=== PATIENT | female | born 2000 | race Caucasian/White ===

== ENCOUNTER 2020-09-18 13:02 | Emergency (ER) | payer OTHER ==
[~2020-09-18] VITALS: Ht 152.4 cm; Wt 67.6 kg
[~2020-09-18 13:02] MED LIST: BACTRIM DS TAB1 EACH PO; CLONIDINE HCL0.1 MG PO; CONCERTA54 MG PO; IBUPROFEN600 MG PO; LIDOCAINE30 G TOP; SERTRALINE HCL50 MG PO
== END 2020-09-18 16:19 | disposition home or self-care (01) ==
LOC: ED 13:02
DX: R55 Syncope and collapse (principal); Z20.822 Contact with and (suspected) exposure to COVID-19; Z88.0 Allergy status to penicillin
CPT/HCPCS: 80053; 81001; 84703; 85025; 99284; C9803; U0003

== ENCOUNTER 2020-10-06 08:20 | Emergency (ER) | payer OTHER ==
[~2020-10-06] VITALS: Ht 152.4 cm; Wt 68.6 kg
[2020-10-06] MEDS ORDERED: VITAMIN D31250 MC1 PO (08:37)
--- OUTSIDE RECORDS SUMMARY | 2020-10-06 08:56 | XMS ---
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 - 2 Visits in 30 Days CARE PROVIDERS AMAURI PRICE Clinic/Center: Primary Care 01/16/2019-[facility] PHONE: [phone] Anjana NORMAN Nurse Practitioner: 12/21/2019-Current PHONE: [phone] CHAD CUEVAS Nurse Practitioner: 06/22/2019-Current PHONE: [phone] HUONG LEUNG Nuclear Spectroscopist/Flexographic Press Operator Current [facility] TEAM PHONE: Unknown Care Guidelines exist for the following facilities: [facility] ( 07/08/2020 ) Danisha VISIT COUNT (12 MO.) 1 Michi Olivo 2 PRINCESS Lyn TOTAL 3 NOTE: Visits indicate total known visits. ED/UCC VISIT TRACKING (12 MO.) 10/06/2020 08:20 PRINCESS Rey [place] TYPE: Emergency COMPLAINT: - ABD PAIN 09/18/2020 13:03 PRINCESS Rey [place] TYPE: Emergency COMPLAINT: - WEAKNESS, BODY PAIN, BALANCE ISSUE DIAGNOSES: - Allergy status to penicillin - Syncope and collapse - Dizziness and giddiness 11/12/2019 22:58 Michi MALDONADO OR TYPE: Emergency DIAGNOSES: - Unspecified abdominal pain INPATIENT VISIT TRACKING (12 MO.) No inpatient visits to display in this time frame [email or web address]
[2020-10-06] MEDS ORDERED: ONDANSETRON ODT4 MG PO (10:21)
== END 2020-10-06 11:03 | disposition home or self-care (01) ==
LOC: ED 08:20
DX: R11.2 Nausea with vomiting, unspecified (principal); R19.7 Diarrhea, unspecified; R10.9 Unspecified abdominal pain; Z88.0 Allergy status to penicillin
CPT/HCPCS: 80053; 85025; 96374; 99284-25; J2405; J7030

== ENCOUNTER 2020-10-21 18:05 | Emergency (ER) | payer OTHER ==
[~2020-10-21] VITALS: Ht 152.4 cm; Wt 70.3 kg
[~2020-10-21 18:05] MED LIST changes: +ONDANSETRON ODT4 MG PO; +VITAMIN D31250 MC1 PO
--- OUTSIDE RECORDS SUMMARY | 2020-10-21 18:08 | XMS ---
PreManage Notification: HOANG SAUCEDO Security Gum Cook Events No recent Security Events currently on file CRITERIA MET - [facility] - 2 Visits in 30 Days CARE PROVIDERS AMAURI PRICE Clinic/Center: Primary Care 01/16/2019-[facility] PHONE: [phone] Anjana NORMAN Nurse Practitioner: 12/21/2019-Current PHONE: [phone] CHAD CUEVAS Nurse Practitioner: 06/22/2019-Current PHONE: [phone] HUONG LEUNG Malt Loader/Clean Out Driller Current [facility] TEAM PHONE: Unknown Care Guidelines exist for the following facilities: [facility] ( 07/08/2020 ) Danisha VISIT COUNT (12 MO.) 1 Michi Olivo 3 PRINCESS Lyn TOTAL 4 NOTE: Visits indicate total known visits. ED/UCC VISIT TRACKING (12 MO.) 10/21/2020 18:05 PRINCESS GonzalezAnup Sparrow [place] TYPE: Emergency COMPLAINT: - BACK PAIN/ NON INJ 10/06/2020 08:20 PRINCESS [place] HAnup Sparrow [place] TYPE: Emergency COMPLAINT: - NV DIAGNOSES: - Unspecified abdominal pain - Nausea with vomiting, unspecified - Diarrhea, unspecified - Allergy status to penicillin 09/18/2020 13:03 PRINCESS [place] HAnup Sparrow [place] TYPE: Emergency COMPLAINT: - WEAKNESS, BODY PAIN, BALANCE ISSUE DIAGNOSES: - Allergy status to penicillin - Syncope and collapse - Dizziness and giddiness 11/12/2019 22:58 Michi MALDONADO [place] TYPE: Emergency DIAGNOSES: - Unspecified abdominal pain INPATIENT VISIT TRACKING (12 MO.) No inpatient visits to display in this time frame [email or web address]
[2020-10-21] MEDS ORDERED: CYCLOBENZAPRINE10 MG PO (19:29)
== END 2020-10-21 19:54 | disposition home or self-care (01) ==
LOC: ED 18:05
DX: M54.5 Low back pain (principal); G89.29 Other chronic pain; Z88.0 Allergy status to penicillin
CPT/HCPCS: 99283

== ENCOUNTER 2021-04-10 16:38 | Emergency (ER) | payer OTHER ==
[~2021-04-10] VITALS: Ht 152.4 cm; Wt 70.3 kg
[~2021-04-10 16:38] MED LIST changes: +CYCLOBENZAPRINE10 MG PO
[2021-04-10] MEDS ORDERED: ZITHROMAX250 MG PO (19:00)
== END 2021-04-10 19:18 | disposition home or self-care (01) ==
LOC: ED 16:38
DX: J02.9 Acute pharyngitis, unspecified (principal); Z88.0 Allergy status to penicillin; Z20.822 Contact with and (suspected) exposure to COVID-19
CPT/HCPCS: 87077; 87081; 99283; C9803; U0003

== ENCOUNTER 2021-09-18 14:47 | Emergency (ER) | payer OTHER ==
[~2021-09-18] VITALS: Ht 152.4 cm; Wt 70.3 kg
[~2021-09-18 14:47] MED LIST changes: +ZITHROMAX250 MG PO
== END 2021-09-18 17:54 | disposition home or self-care (01) ==
LOC: ED 14:47
DX: O99.891 Other specified diseases and conditions complicating pregnancy (principal); R10.2 Pelvic and perineal pain; Z88.0 Allergy status to penicillin
CPT/HCPCS: 36415; 76801; 76817; 80053; 81001; 83690; 84702; 85025; 87491; 99284-25

== ENCOUNTER 2021-09-22 23:40 | Emergency (ER) | payer OTHER ==
[~2021-09-22] VITALS: Ht 152.4 cm; Wt 79.0 kg
--- OUTSIDE RECORDS SUMMARY | 2021-09-22 23:44 | XMS ---
PreManage Notification: HOANG SAUCEDO Security Production Estimator Events No recent Security Events currently on file CRITERIA MET - [facility] - 2 Visits in 30 Days CARE PROVIDERS MAHANOY PLANEAMAURI [facility]/Center: Primary Care 01/16/2019-[facility] PHONE: [phone] HUONG LEUNG Invoice Classification Clerk/Machine Riveter [facility] TEAM PHONE: Unknown Care Guidelines exist for the following facilities: [facility] ( 07/08/2020 ) Care History Medical/Surgical 10/23/2020 [facility] - Patient is currently established with [facility]. If patient is seen in the ED during business hours. Please contact CHWs at [facility]. Care Recommendation: If this patient has had 5 or more Emergency Department visits in the last 12 months.\T\nbsp; Patient will require education on the scope and purpose of the ED as an acute care provider not a Primary Care Provider and should not be utilized for chronic conditions.\T\nbsp; These are guidelines and the provider should exercise clinical judgment when providing care. E.D. VISIT COUNT (12 MO.) 5 PRINCESS Lyn TOTAL 5 NOTE: Visits indicate total known visits. ED/UCC VISIT TRACKING (12 MO.) 09/22/2021 23:41 PRINCESS Rey [place] TYPE: Emergency COMPLAINT: - BACK PAIN NON INJ 09/18/2021 14:47 PRINCESS Rey [place] TYPE: Emergency COMPLAINT: - ABDOMINAL PAIN DIAGNOSES: - Other specified diseases and conditions complicating - Pelvic and perineal pain - Allergy status to penicillin 04/10/2021 16:39 PRINCESS Rey [place] TYPE: Emergency COMPLAINT: - SORE THROAT DIAGNOSES: - Acute pharyngitis, unspecified - Allergy status to penicillin - Contact with and (suspected) exposure to COVID-19 10/21/2020 18:05 PRINCESS Rey [place] TYPE: Emergency COMPLAINT: - BACK PAIN/ NON INJ DIAGNOSES: - Other chronic pain - Allergy status to penicillin - Low back pain 10/06/2020 08:20 PRINCESS Rey [place] TYPE: Emergency COMPLAINT: - NV DIAGNOSES: - Unspecified abdominal pain - Nausea with vomiting, unspecified - Diarrhea, unspecified - Allergy status to penicillin INPATIENT VISIT TRACKING (12 MO.) No inpatient visits to display in this time frame [id number]
[2021-09-23] MEDS ORDERED: CYCLOBENZAPRINE10 MG PO (01:06)
[2021-09-23] MEDS ORDERED: LIDODERM1 EACH TOP (01:06)
== END 2021-09-23 01:22 | disposition home or self-care (01) ==
LOC: ED 23:40
DX: S29.012A Strain of muscle and tendon of back wall of thorax, initial encounter (principal); Z88.0 Allergy status to penicillin; X58.XXXA Exposure to other specified factors, initial encounter
CPT/HCPCS: 99283; A9270

== ENCOUNTER 2021-10-13 15:35 | Emergency (ER) | payer BC, OTHER ==
[~2021-10-13] VITALS: Ht 152.4 cm; Wt 78.9 kg
[~2021-10-13 15:35] MED LIST changes: +LIDODERM1 EACH TOP
--- OUTSIDE RECORDS SUMMARY | 2021-10-13 15:42 | XMS ---
PreManage Notification: HOANG SAUCEDO Security Patient Accounting Representative Events No recent Security Events currently on file CRITERIA MET - [facility] - 2 Visits in 30 Days - [facility] - Has Care Guidelines CARE PROVIDERS AMAURI PRICE Clinic/Center: Primary Care [facility]/16/[facility] PHONE: [phone] HUONG LEUNG Computer Aided Design Designer/Dip Brazier Current [facility] TEAM PHONE: Unknown LEXIE RIOS Nurse Practitioner: 09/25/2021-Current PHONE: [phone] Care Guidelines exist for the following facilities: [facility] [place] ( 07/08/2020 ) Care History Medical/Surgical 09/24/2021 [facility] - Patient is currently established with [facility]. If patient is seen in the ED during business hours. Please contact CHWs at [facility]. Care Recommendation: If this patient [...] care. E.D. VISIT COUNT (12 MO.) 5 [facility] TOTAL 5 NOTE: Visits indicate total known visits. ED/UCC VISIT TRACKING (12 MO.) 10/13/2021 15:35 PRINCESS Rey [place] TYPE: Emergency COMPLAINT: - DIFFICULTY BREATHING/ 7 WEEKS PREG 09/22/2021 23:41 PRINCESS Rey [place] TYPE: Emergency COMPLAINT: - BACK PAIN NON INJ DIAGNOSES: - Strain of muscle and tendon of back wall of thorax, initial encounter - Dorsalgia, unspecified - Allergy status to penicillin - Exposure to other specified factors, initial encounter 09/18/2021 14:47 PRINCESS Rey [place] TYPE: Emergency [...] status to penicillin - Low back pain INPATIENT VISIT TRACKING (12 MO.) No inpatient visits to display in this time frame [email or web address]
--- NOTE | 2021-10-14 13:40 | EKG ---
[facility] [address] [place] [address] Signed Normal sinus rhythm with sinus arrhythmia Normal ECG When compared with ECG of 27-FEB-2016 11:42, No significant change was found Confirmed by EDUIN MO MD ([id number]) on 10/14/2021 1:39:54 PM Electronically Signed By: EDUIN MO MD 10/14/21 1340 PATIENT NAME: LEWISHOANGCHUYITA BELL Electrocardiogram DATE OF : 89 PHYSICIAN: EDUIN MO MD REPORT #: [id number] REPORT IS CONFIDENTIAL AND NOT TO BE RELEASED WITHOUT AUTHORIZATION
== END 2021-10-13 20:22 | disposition home or self-care (01) ==
LOC: ED 15:35
DX: O99.891 Other specified diseases and conditions complicating pregnancy (principal); R07.9 Chest pain, unspecified; Z3A.01 Less than 8 weeks gestation of pregnancy; Z88.0 Allergy status to penicillin; Z79.899 Other long term (current) drug therapy
CPT/HCPCS: 36415; 80053; 81001; 83690; 83735; 84703; 85025; 85379; 93005; 93010; 96374; 99285-25; J2550

== ENCOUNTER 2021-10-24 08:32 | Emergency (ER) | payer BC, OTHER ==
[~2021-10-24] VITALS: Ht 152.4 cm; Wt 76.7 kg
--- OUTSIDE RECORDS SUMMARY | 2021-10-24 08:39 | XMS ---
PreManage Notification: HOANG SAUCEDO Security Tapping Machine Operator Automatic Events No recent Security Events currently on file CRITERIA MET - [facility] - 2 Visits in 30 Days - [facility] - Has Care Guidelines CARE PROVIDERS AMAURI PRICE Clinic/Center: Primary Care 01/16/2019-[facility] PHONE: [phone] HUONG LEUNG Counterintelligence Analyst/Barrel Rifler Button Current [facility] TEAM PHONE: Unknown LEXIE RIOS Nurse Practitioner: 09/25/2021-Current PHONE: [phone] Care Guidelines exist for the following facilities: [facility] ( 07/08/2020 ) Care History Medical/Surgical 09/24/2021 [facility] - Patient is currently established with [facility]. If patient is seen in the ED during business hours. Please contact CHWs at [facility]. Care Recommendation: If this patient has had [...] E.D. VISIT COUNT (12 MO.) [address] [facility] TOTAL 5 NOTE: Visits indicate total known visits. ED/UCC VISIT TRACKING (12 MO.) 10/24/2021 08:33 PRINCESS Rey [place] TYPE: Emergency COMPLAINT: - ABD PAIN, HEADACHE, DEHYDRATED 10/13/2021 15:35 PRINCESS Rey [place] TYPE: Emergency COMPLAINT: - DIFFICULTY BREATHING/ 7 WEEKS PREG DIAGNOSES: - Allergy status to penicillin - Other group home (current) drug therapy - Less than 8 weeks gestation of - Shortness of breath - Other specified diseases and conditions complicating - Chest pain, unspecified 09/22/2021 23:41 PRINCESS Rey [place] TYPE: Emergency [...] Contact with and (suspected) exposure to COVID-19 INPATIENT VISIT TRACKING (12 MO.) No inpatient visits to display in this time frame [email or web address]
[2021-10-24] MEDS ORDERED: PROMETHAZINE12.5 M1 PO (08:53)
[2021-10-24] MEDS ORDERED: ONDANSETRON ODT8 MG PO (10:42)
== END 2021-10-24 11:34 | disposition home or self-care (01) ==
LOC: ED 08:32
DX: O21.0 Mild hyperemesis gravidarum (principal); Z3A.09 9 weeks gestation of pregnancy; Z88.0 Allergy status to penicillin; Z79.899 Other long term (current) drug therapy
CPT/HCPCS: 36415; 80048; 81001; 85025; 96374; 96375; 99284-25; A9270; J1200; J2405; J2550; J7030

== ENCOUNTER 2021-12-28 14:16 | Emergency (ER) | payer BC, OTHER ==
[~2021-12-28] VITALS: Ht 152.4 cm; Wt 79.4 kg
--- NOTE | ~2021-12-28 | EKG ---
[facility] [address] [place], [place] [address] Draft EK completed, results pending confirmation PATIENT NAME: LEWISHOANG Electrocardiogram DATE OF : 89 PHYSICIAN: PRELIMINARY REPORT #: [id number] REPORT IS CONFIDENTIAL AND NOT TO BE RELEASED WITHOUT AUTHORIZATION
[~2021-12-28 14:16] MED LIST changes: +ONDANSETRON ODT8 MG PO; +PROMETHAZINE12.5 M1 PO
--- OUTSIDE RECORDS SUMMARY | 2021-12-28 14:24 | XMS ---
PreManage Notification: HOANG SAUCEDO Security Pie Maker Machine Events No recent Security Events currently on file CRITERIA MET - [facility] CARE PROVIDERS AMAURI PRICE Clinic/Center: Primary Care 01/16/2019-[facility] PHONE: [phone] HUONG LEUNG Naphtha Washing System Operator/Avionics Systems Repairer Current [facility] TEAM PHONE: Unknown LEXIE RIOS Nurse Practitioner: 09/25/2021-Current PHONE: [phone] Care Guidelines exist for the following facilities: [facility] ( 07/08/2020 ) Care History Medical/Surgical 09/24/2021 [facility] - [facility] [...] providing care. E.D. VISIT COUNT (12 MO.) 6 [facility]. TOTAL 6 NOTE: Visits indicate total known visits. ED/UCC VISIT TRACKING (12 MO.) 12/28/2021 14:17 PRINCESS [place] HAnup Sparrow [place] TYPE: Emergency COMPLAINT: - CHEST PAIN 10/24/2021 08:33 PRINCESS [place] HAnup Sparrow [place] TYPE: Emergency COMPLAINT: - ABD PAIN, HEADACHE, DEHYDRATED DIAGNOSES: - Nausea with vomiting, unspecified - Other manager long term care (current) drug therapy - 9 weeks gestation of - Allergy status to penicillin - Mild hyperemesis gravidarum 10/13/2021 15:35 PRINCESS Rey [place] TYPE: Emergency COMPLAINT: - DIFFICULTY BREATHING/ 7 WEEKS PREG DIAGNOSES: - Allergy status to penicillin - Other manager long term care (current) drug therapy - Less than 8 [...] visits to display in this time frame [email or web address]
== END 2021-12-28 18:08 | disposition home or self-care (01) ==
LOC: ED 14:16
DX: O99.891 Other specified diseases and conditions complicating pregnancy (principal); R07.89 Other chest pain; Z3A.19 19 weeks gestation of pregnancy; Z88.0 Allergy status to penicillin
CPT/HCPCS: 36415; 71260; 80048; 84484; 85025; 85379; 93005; 93010; 99285-25; Q9967

== ENCOUNTER 2022-02-14 16:05 | Observation (INO) | payer OTHER, BC ==
--- NOTE | 2022-02-15 07:50 | PR ---
[facility] [place] [facility] [address] [place] [address] Signed AP Progress Notes Datetime Report Generated by DAYANA: 02/15/2022 07:50 Chief Complaint: none PHYSICAL EXAM: [id number] General: Normal HEENT: Not Done Neurologic: Not Done Thyroid: Not Done Cardiovascular: Not Done Respiratory: Not Done Breast: Not Done Abdomen: Abnormal Genitourinary Exam: Not Done Extremities: Not Done DTRs: Not Done Pelvic: Marginal Physical Exam Comments: Abdomen soft, nontender, gravid Impression: Comfortable overnight w/o c/o. Will continue observation with probable D/C this afternoon (approx 4 pm) if continues to do well. Plan: Continue ext monitoring VITAL SIGNS: [id number] Vital Signs: Reviewed; Within Normal Limits EXAM: [id number] Contraction Comments: q 3 to 10 min, mild MEMBRANES: [id number] Membranes: Intact FETUS A: [id number] FHR Baseline: 140 Variability: Moderate 6-25bpm Accelerations: 10X10 Deceleration: None FHR Category: Category II FHR Comments: reassuring for gest age FETUS B: [id number] PROGRESS NOTES: [id number] Signing Physician: Re Zuniga MD *Electronically Signed* 02/15/22 0750 RE ZUNIGA MD PATIENT NAME: HOANG SAUCEDO PROGRESS NOTE DATE OF : [birth year] PHYSICIAN: RE ZUNIGA MD RPT #: [id number] REPORT IS CONFIDENTIAL AND NOT TO BE RELEASED WITHOUT AUTHORIZATION
--- NOTE | 2022-02-15 14:09 | PR ---
[facility] [address] [place], [place] [address] Signed AP Progress Notes Datetime Report Generated by SEANN: 02/15/2022 14:09 Chief Complaint: Rare contraction overnight. Reports GFM and no bleeding. PHYSICAL EXAM: [id number] General: Normal HEENT: Not Done Neurologic: Not Done Thyroid: Not Done Cardiovascular: Not Done Respiratory: Not Done Breast: Not Done Abdomen: Abnormal Genitourinary Exam: Not Done Extremities: Normal DTRs: Not Done Pelvic: Marginal Physical Exam Comments: Abdomen soft, nontender, gravid Impression: 22 yo now at 25.4 wks under observation following fall yesterday with some abdominal trauma. Contractions were initially too frequent but these have resolved over observation and hydration. If contractions continue to be rare, she is able to be discharged at the 24 hr alma of monitoring. Plan: D/C home at 24 hr alma Increase po fluids Make appt to be seen within 10 days Precautions reviewed for decreased movement, vag bleeding, increased contractions VITAL SIGNS: [id number] Vital Signs: Reviewed; Within Normal Limits EXAM: [id number] Contraction Comments: q 3 to 10 min, mild MEMBRANES: [id number] Membranes: Intact FETUS A: [id number] FHR Baseline: 140 Variability: Moderate 6-25bpm Accelerations: 10X10 Deceleration: None FHR Category: Category II FHR Comments: reassuring for gest age *Electronically Signed* 02/15/22 1403 RE ZUNIGA MD PATIENT NAME: HOANG SAUCEDO PROGRESS NOTE DATE OF : [birth year] PHYSICIAN: RE ZUNIGA MD RPT #: [id number] REPORT IS CONFIDENTIAL AND NOT TO BE RELEASED WITHOUT AUTHORIZATION [facility] [address] [place], [place] [address] Signed FETUS B: [id number] PROGRESS NOTES: [id number] Signing Physician: Re Zuniga MD Copies: ~ *Electronically Signed* 02/15/22 1409 RE ZUNIGA MD PATIENT NAME: HOANG SAUCEDO PROGRESS NOTE DATE OF : [birth year] PHYSICIAN: RE ZUNIGA MD RPT #: [id number] REPORT IS CONFIDENTIAL AND NOT TO BE RELEASED WITHOUT AUTHORIZATION
== END 2022-02-15 16:30 | disposition home or self-care (01) ==
LOC: FBCO 16:05 → FBC 18:13
PROVIDERS: ADMIT Obstetrics & Gynecology; ATTEND Obstetrics & Gynecology
DX: O47.02 False labor before 37 completed weeks of gestation, second trimester (principal); O9A.212 Injury, poisoning and certain other consequences of external causes complicating pregnancy, second trimester; W01.0XXA Fall on same level from slipping, tripping and stumbling without subsequent striking against object, initial encounter; Z3A.25 25 weeks gestation of pregnancy; Z20.822 Contact with and (suspected) exposure to COVID-19
CPT/HCPCS: 76815; 87502; A9270; C9803; U0003

== ENCOUNTER 2022-03-01 08:53 | Emergency (ER) | payer BC, OTHER ==
[~2022-03-01] VITALS: Ht 152.4 cm; Wt 86.7 kg
--- OUTSIDE RECORDS SUMMARY | 2022-03-01 09:01 | XMS ---
PreManage Notification: HOANG SAUCEDO Security Rn Urology Events No recent Security Events currently on file CRITERIA MET - 6 ED Visits in 6 Months - [facility] - Has Care Guidelines CARE PROVIDERS AMAURI PRICE Clinic/Center: Primary Care 01/16/2019-Current [facility] PHONE: [phone] HUONG LEUNG Dredge Pipe Installer/Striping Machine Operator Current [facility] TEAM PHONE: Unknown LEXIE RIOS Nurse Practitioner: 09/25/2021-Current PHONE: [phone] Care Guidelines exist for the following facilities: [facility] ( 07/08/2020 ) Care History Medical/Surgical 09/24/[address] [facility] - Patient is currently established with [facility]. If patient is seen in the ED during business hours. Please contact CHWs at [facility]. Care Recommendation: If this patient [...] providing care. E.D. VISIT COUNT (12 MO.) 7 [facility] TOTAL 7 NOTE: Visits indicate total known visits. ED/UCC VISIT TRACKING (12 MO.) 03/01/2022 08:53 PRINCESS Rey [place] TYPE: Emergency COMPLAINT: - CRAMP IN LEGS 12/28/2021 14:17 PRINCESS Rey [place] TYPE: Emergency COMPLAINT: - CHEST PAIN DIAGNOSES: - Other specified diseases and conditions complicating - 19 weeks gestation of - Other chest pain - Allergy status to penicillin 10/24/2021 08:33 PRINCESS Rey [place] TYPE: Emergency COMPLAINT: - ABD PAIN, HEADACHE, DEHYDRATED DIAGNOSES: - Allergy status to penicillin - Other rodent exterminator (current) drug therapy - Mild hyperemesis gravidarum - 9 weeks gestation of - Nausea with vomiting, unspecified 10/13/2021 15:35 PRINCESS Rey [place] TYPE: Emergency COMPLAINT: - DIFFICULTY BREATHING/ 7 WEEKS PREG DIAGNOSES: - Chest pain, unspecified - Shortness of breath - Other usp (current) drug therapy - Other specified diseases and conditions complicating - Less than 8 weeks gestation of - Allergy status to penicillin 09/22/2021 23:41 PRINCESS Rey [place] TYPE: Emergency COMPLAINT: - BACK PAIN NON INJ DIAGNOSES: - Exposure to other specified factors, initial encounter - Dorsalgia, unspecified - Allergy status to penicillin - Strain of muscle and tendon of back wall of thorax, initial encounter 09/18/2021 14:47 PRINCESS Rey OR TYPE: Emergency COMPLAINT: - ABDOMINAL PAIN DIAGNOSES: - Pelvic and perineal pain - Allergy status to penicillin - Other specified diseases and conditions complicating 04/10/2021 16:39 PRINCESS Rey OR TYPE: Emergency COMPLAINT: - SORE THROAT DIAGNOSES: - Allergy status to penicillin - Contact with and (suspected) exposure to COVID-19 - Acute pharyngitis, unspecified INPATIENT VISIT TRACKING (12 MO.) 02/14/2022 18:13 PRINCESS Rey [place] TYPE: Observation COMPLAINT: - OB CHECK - OBSERVATION DIAGNOSES: - False labor before 37 completed weeks of gestation, second trimester - Injury, poisoning and certain other consequences of external causes complicating , second trimester - Contact with and (suspected) exposure to COVID-19 - 25 weeks gestation of - Fall on same level from slipping, tripping and stumbling without subsequent striking against object, initial encounter [id number]
--- NOTE | 2022-03-01 09:50 | NUR ---
EFM STRIP RAN ON 27.4WKS PT SEEN IN ED BY DR. FRANCISCO. HEART RATE REACTIVE FOR 27.4WKS, NO U/C'S NOTED. DR. COOPER CALLED BY THIS RN, INFORED OF PT BEING SEEN IN ED FOR LEG CRAMPING AND EFM STRIP RAN, NO U/C'S NOTED, FHR BASELINE 140-150, MODERATE VARIABILITY, 10X10 ACCELERATIONS, NO DECELERATIONS.
== END 2022-03-01 12:09 | disposition home or self-care (01) ==
LOC: ED 08:53
DX: O99.891 Other specified diseases and conditions complicating pregnancy (principal); R25.2 Cramp and spasm; O99.283 Endocrine, nutritional and metabolic diseases complicating pregnancy, third trimester; E83.42 Hypomagnesemia; Z3A.28 28 weeks gestation of pregnancy; Z88.0 Allergy status to penicillin
CPT/HCPCS: 36415; 80053; 83735; 85025; 96365; 99283-25; J3475

== ENCOUNTER 2022-05-26 00:11 | Inpatient (IN) | payer BC, OTHER ==
[~2022-05-26] VITALS: Ht 152.4 cm; Wt 96.2 kg
--- NOTE | ~2022-05-26 | OR ---
[facility] [address] [place], [place] [address] Draft DATE OF OPERATION: 05/26/2022 SURGEON: Shira Ridley DO PREOPERATIVE DIAGNOSES: 1. Term , delivered. 2. Non-reassuring heart tracing. POSTOPERATIVE DIAGNOSES: 1. Term , delivered. 2. Non-reassuring heart tracing. PROCEDURES PERFORMED: Primary . ANESTHESIA: Epidural. SALES FLOOR ASSOCIATE: Jennifer Jeffries DO. ESTIMATED BLOOD LOSS: 700 mL. COMPLICATIONS: None. DRAINS: Marie to gravity. FINDINGS: Delivery of viable male , 6 pounds 12 ounces with Apgars of 9 and 9 , born in the LOT position via primary low-transverse delivery. Normal uterus, tubes, and ovaries. Normal placenta, clear amniotic fluid, and centrally inserted three-vessel cord. INDICATIONS: Ms. Hardy is a pleasant 22-year-old, G1, P0, with IUP at 39 weeks and 6 days gestation who was scheduled for elective induction of labor. She presented to the hospital just prior to her elective induction of labor with spontaneous rupture of membranes. The PATIENT NAME: HOANG HARDY OPERATIVE REPORT DATE OF : 99 REPORT #: [id number] PHYSICIAN: SHIRA RIDLEY (QUYEN) PCP: TRACEY ALMANZA PA-C REPORT IS CONFIDENTIAL AND NOT TO BE RELEASED WITHOUT AUTHORIZATION [facility] [address] [place], [place] [address] Draft patient was admitted and was GBS negative. The patient with intermittent late decelerations with moderate variability and accelerations. The patient had a prolonged deceleration shortly after epidural, which resolved. The patient then developed recurrent late and prolonged decelerations. Decision was made to proceed with primary low transverse delivery. Risks, benefits, and alternatives were discussed in detail with the patient. The patient understands and wished to proceed with procedure. PROCEDURE IN DETAIL: The patient was taken to the operating room. A time-out was performed to confirm correct patient, correct procedure. Epidural anesthesia had adequately been established and was bolused and found to be adequate. Marie catheter previously inserted. The patient received clindamycin 900 mg, azithromycin 500 mg, and gentamicin per pharmacy due to history of penicillin allergy. The patient was given a dose of terbutaline prior to presenting to the operating room and no heparin was indicated. ICPs were on and running. The patient was prepped and draped in the supine position with a bump under the right hip. The epidural anesthetic was found to be adequate and a Pfannenstiel skin incision was made using a surgical scalpel, approximately 2-3 cm above the pubic symphysis. Incision was carried down to the fascia. The fascia was nicked in the midline. Fascial incision extended bilaterally using curved Hannon scissors. Fascia was grasped with Jaci's, elevated, and the underlying rectus was dissected off bluntly and sharply. Rectus was divided in the midline and peritoneum was entered bluntly. Peritoneal incision was extended bilaterally using blunt dissection. Normal uterus was noted. An Osmar self retractor was placed. Hysterotomy was performed using a surgical scalpel. The hysterotomy was extended bilaterally using blunt dissection and the surgeon's hand was placed in the uterine cavity. head elevated and delivered with the assistance of fundal pressure. No nuchal cord was identified and the was delivered easily in the LOT position. The was vigorous and cried upon delivery. Cord was doubly clamped and cut and handed to waiting pediatric team for further care. Cord blood was obtained for routine analysis as well as for cord gases. Placenta was manually expressed, intact with a centrally inserted three-vessel cord. The uterus was cleared of any remaining products of conception. Some brisk bleeding was noted from the right uterine vessels and these were quickly made hemostatic with [id number] of 0 Monocryl. Hysterotomy was then repaired in two layers using 0 Monocryl. The first being a running lock stitch and the second being an imbricating stitch in the vertical manner. The pelvis was irrigated and a small amount of oozing was noted at the right lateral portion of the hysterotomy and this was made hemostatic with ibebuz-[id number] of 0-Monocryl. After ensuring hemostasis, the uterus, tubes, and ovaries were examined, found to be normal. The Osmar self retractor was removed and peritoneum was reapproximated using 2-0 Vicryl in a running nonlocked manner. Rectus was examined and made hemostatic with judicious use of Bovie electrocautery. Rectus was then plicated loosely in the midline with #0 Vicryl in three interrupted sutures. Fascia was then reapproximated using 0 Vicryl in a running nonlocked manner. Subcutaneous space was PATIENT NAME: HOANG HARDY OPERATIVE REPORT DATE OF : 99 REPORT #: [id number] PHYSICIAN: SHIRA RIDLEY) PCP: TRACEY ALMANZA PA-C REPORT IS CONFIDENTIAL AND NOT TO BE RELEASED WITHOUT AUTHORIZATION [address] [address] [place] irrigated and made hemostatic with judicious use of Bovie electrocautery. Subcu was reapproximated using 3-0 Vicryl in a running nonlocked manner and skin was reapproximated using surgical sujata. The uterus was Crede'd for scant amount of blood and the patient was taken to the PACU in good and stable condition. Sponge, needle, and instrument count were correct x2 at the end of procedure. Dr. Jeffries was present, participated in all portions of the procedure. Shira Ridley DO JYONATHAN/BALAJI /[id number] Copies: ~ PATIENT NAME: HOANG HARDY OPERATIVE REPORT DATE OF : 99 REPORT #: [id number] PHYSICIAN: SHIRA RIDLEY DO (JD) PCP: TRACEY ALMANZA PA-C REPORT IS CONFIDENTIAL AND NOT TO BE RELEASED WITHOUT AUTHORIZATION
--- NOTE | 2022-05-26 05:54 | PR ---
[facility] [address] [place], [place] [address] Signed Progress Notes IP Datetime Report Generated by CPAlejandro: 05/26/2022 05:54 PROGRESS NOTES: [id number] Impression: Normal Progression of Labor; Reassuring Heart Rate Procedures: Intrauterine Pressure Catheter Plan: Continue Present Management Informed Consent Obtain: Vaginal Delivery; Section Delivery VITAL SIGNS: [id number] Vital Signs: Reviewed VS Notable Details: Few elevated BPs; not sustained EXAM: [id number] Dilatation: 4.0 Effacement: 90 Station: -2 Contractions: Irregular MEMBRANES: [id number] Membranes Status: Intact Comments: Reviewed IUPC w/ pt and development of variable decelerations. Discussed IUPC can better evaluate intrauterine forces and that IUPC can be used for amnioinfusion if needed. Reviewed time of SROM at approx 2245. All questions answered. FETUS A: [id number] FHR Baseline: 130 Variability: Moderate 6-25bpm Accelerations: 15X15 Decelerations: Prolonged FHR Category: Category I Presentation: Vertex Comments on Fetus A: No evidence of metabolic acidosis FETUS B: [id number] Signing Physician: Shira Ridley DO Copies: ~ *Electronically Signed* 05/26/22 0554 SHIRA RIDLEY (QUYEN) DO PATIENT NAME: HOANG SAUCEDO PROGRESS NOTE DATE OF : 89 PHYSICIAN: SHIRA RIDLEY) DO RPT #: [id number] REPORT IS CONFIDENTIAL AND NOT TO BE RELEASED WITHOUT AUTHORIZATION
--- NOTE | 2022-05-26 07:37 | PR ---
[facility] [address] [place], [place] [address] Signed Progress Notes IP Datetime Report Generated by DAYANA: 05/26/2022 07:37 PROGRESS NOTES: [id number] Impression: Non-reassuring Heart Rate Procedures: Scalp Electrode; Sterile Vag Exam Plan: Deliver- Section Informed Consent Obtain: Section Delivery; Risks, Benefits and Alternatives Discussed VITAL SIGNS: [id number] Vital Signs: Reviewed VS Notable Details: Few elevated BPs; not sustained EXAM: [id number] Dilatation: 4.0 Effacement: 90 Station: -2 Contractions: Irregular MEMBRANES: [id number] Membranes Status: Intact Comments: Called to pt room for decelerations. FSE not working well and was replaced w/out difficulty. Another prolonged late deceleration noted despite positional changes and IV fluid bolus. Recommend primary LTCS. PCN allergy; will proceed with Clinda/Gent and Azithro. Terbutaline administered. Consents signed. All questions answered to best of my ability and to patient's apparent satisfaction. FETUS A: [id number] FHR Baseline: 130 Variability: Moderate 6-25bpm Accelerations: 15X15 Decelerations: Prolonged FHR Category: Category I Presentation: Vertex Comments on Fetus A: No evidence of metabolic acidosis FETUS B: [id number] Signing Physician: Shira Ridley DO Copies: ~ *Electronically Signed* 05/26/22 0737 SHIRA RIDLEY (QUYEN) DO PATIENT NAME: HOANG SAUCEDO PROGRESS NOTE DATE OF : [birth year] PHYSICIAN: SHIRA RIDLEY) DO RPT #: [id number] REPORT IS CONFIDENTIAL AND NOT TO BE RELEASED WITHOUT AUTHORIZATION
--- NOTE | 2022-05-26 09:04 | NUR ---
05/26/22 0904 Fedeirca Vaughan 0848-PATIENT ARRIVED TO ROOM 102 FOR PACU RECOVERY. PATIENT IS REACTIVE OPENING EYES RAISING ARMS. 10 L OXYMASK RR EVEN. PATIENT NOT FOLLOWING COMMANDS RR EVEN. FAMILY AT BEDSIDE. ST. IVF LR WITH 30 PITOCIN LEFT HAND CDI. 0850-PATIENT OPENING EYES RAISING ARMS IN BED. NOT FOLLOWING COMMANDS. ORIENTED TO RECOVERY AND SITUATION. FUNDUS FIRM AT UMBILICUS LIGHT RUBRA DRAINAGE VEL PAD PLACE. 0902-PATIENT OPENING EYES NOT FOLLOWING COMMANDS ORIENTED. 6L MASK RR EVEN 100% ST 116. PATIENT TRYING TO SIT UP IN BED. ENCOURAGED TO REST.
--- NOTE | 2022-05-28 09:27 | PR ---
[facility] [address] [facility] [place], [place] [address] Signed PP Progress Notes Datetime Report Generated by CPN: 05/28/2022 09:27 SUBJECTIVE: [id number] Pain: Within Normal Limits Nausea/Vomiting: Denies Flatus: Yes Bowel Movement: Yes Vital Signs: [id number] Vital Signs: Reviewed EXAM: Ongoing Cardiovascular: Not Done Respiratory: Not Done Abdomen/Uterus: Normal Lochia: Normal Vulva/Perineum: Not Done Breasts: Not Done CVA Tenderness: Not Done Extremities: Normal Incision: Normal Progress: Normal IMPRESSION/PLAN/PROCEDURES: [id number] Impression: Normal Progression Plan: Discharge Procedures: None Progress Notes: A: Patient well. POD 2. Meeting [facility]. Incision C/D/I and without erythema or drainage. Fundus firm and below umbilicus. Appropriate tenderness to palpation. P: Discharge home . Signing Physician: Sheri Ray MD Copies: ~ *Electronically Signed* 05/28/22926 SHERI RAY MD PATIENT NAME: HOANG SAUCEDO PROGRESS NOTE DATE OF : 99 PHYSICIAN: SHERI RAY MD RPT #: [id number] REPORT IS CONFIDENTIAL AND NOT TO BE RELEASED WITHOUT AUTHORIZATION
== END 2022-05-28 11:40 | disposition home or self-care (01) | DRG 787 ==
LOC: FBC 00:11
PROVIDERS: ADMIT Obstetrics & Gynecology; ATTEND Obstetrics & Gynecology
PROC: 10D00Z1 Extraction of Products of Conception, Low, Open Approach (ICD-10-PCS; principal; 2022-05-26 09:00)
DX: O76 Abnormality in fetal heart rate and rhythm complicating labor and delivery (principal); O99.324 Drug use complicating childbirth; Z3A.39 39 weeks gestation of pregnancy; Z37.0 Single live birth; F12.90 Cannabis use, unspecified, uncomplicated; O99.214 Obesity complicating childbirth; O99.344 Other mental disorders complicating childbirth; F41.9 Anxiety disorder, unspecified; E55.9 Vitamin D deficiency, unspecified
CPT/HCPCS: 36415; 80053; 82565; 82570; 82803; 83615; 84156; 84550; 85027; 86850; 86900; 86901; 87502; A9270; J0456; J1100; J1580; J1650; J1885; J2250; J2274; J2300; J2405; J2550; J2590; J2765; J2795; J3105; J3490; J7121; U0003

== ENCOUNTER 2023-01-29 10:03 | Emergency (ER) | payer BC, OTHER ==
[~2023-01-29] VITALS: Ht 152.4 cm; Wt 91.6 kg
--- OUTSIDE RECORDS SUMMARY | ~2023-01-29 | XMS | Continuity of Care Document ---
Demographics + + + | Address | [address] | | | [place] [address] | + + + | Preferred Language | Unknown | + + + | Marital Status | Polygamous | + + + | Protestant Affiliation | Unknown | + + + | Race | White | + + + | Ethnic Group | Not or | + + + Author + + + | Author | [facility] | + + + | Organization | [facility] | + + + | Address | [address] | | | [place] [address] | + + + | Phone | | + + + Care Team Providers + + + + | Care Neck Fitter Name | Role | Phone | + + + + Unavailable | Unavailable | + + + + Unavailable | Unavailable | + + + + Unavailable | Unavailable | + + + + Allergies and Intolerances + + + + + + | date | description | facility | reaction | severity | + + + + + + | (no date) | Rash | [facility] | (no reaction) | (no severity) | [facility] | | | + + + + + + | (no date) | Penicillin | [facility] | (no reaction) | (no severity) | [facility] | | | + + + + + + | (no date) | Penicillins | [facility] | (no reaction) | (no severity) | + + + + + + | (no date) | Penicillin | [facility] | (no reaction) | (no severity) | [facility] | | | + + + + + + | (no date) | Penicillin | [facility] | (no reaction) | (no severity) | [facility] | | | + + + + + + Encounters No information. Functional Status No information. Immunizations No information. Medications + + + + | date | description | facility | + + + + | 2021-09-23 00:00 | Lidocaine | [facility] | + + + + | 2021-09-23 00:00 | Lidocaine | [facility] | + + + + | 2020-10-06 00:00 | ONDANSETRON | [facility] | + + + + | 2020-10-06 00:00 | ONDANSETRON | [facility] | + + + + | 2022-01-02 00:00 | METHYLPHENIDATE HCL | [facility] | + + + + | 2022-02-15 00:00 | METHYLPHENIDATE HCL | [facility] | + + + + | 2016-06-19 00:00 | LIDOCAINE HCL | [facility] | + + + + | 2016-06-19 00:00 | LIDOCAINE HCL | [facility] | + + + + | 2016-06-19 00:00 | IBUPROFEN | [facility] | + + + + | 2016-06-19 00:00 | IBUPROFEN | [facility] | + + + + | 2021-10-24 00:00 | ONDANSETRON | [facility] | + + + + | 2021-10-24 00:00 | ONDANSETRON | [facility] | + + + + | 2022-01-02 00:00 | SERTRALINE HCL | [facility] | + + + + | 2022-02-15 00:00 | SERTRALINE HCL | [facility] | + + + + | 2022-01-02 00:00 | Cholecalciferol (Vitamin | [facility] | | | D3) | | + + + + | 2022-02-15 00:00 | Cholecalciferol (Vitamin | [facility] | | | D3) | | + + + + | 2020-10-21 00:00 | CYCLOBENZAPRINE HCL | [facility] | + + + + | 2020-10-21 00:00 | CYCLOBENZAPRINE HCL | [facility] | + + + + | 2021-09-23 00:00 | CYCLOBENZAPRINE HCL | [facility] | + + + + | 2021-09-23 00:00 | CYCLOBENZAPRINE HCL | [facility] | + + + + | 2013-10-23 00:00 | | [facility] | | | SULFAMETHOXAZOLE/TRIMETHOPR | | | | IM DS | | + + + + | 2013-10-23 00:00 | | [facility] | | | SULFAMETHOXAZOLE/TRIMETHOPR | | | | IM DS | | + + + + | 2022-01-02 00:00 | CLONIDINE HCL | [facility] | + + + + | 2022-02-15 00:00 | CLONIDINE HCL | [facility] | + + + + Problems + + + + | date | description | facility | + + + + | 2016-06-19 00:00 | Strain of thoracic region | [facility] | + + + + | 2016-06-19 00:00 | Strain of thoracic region | [facility] | + + + + | 2016-06-19 00:00 | Strain of lumbar region | [facility] | + + + + | 2016-06-19 00:00 | Strain of lumbar region | [facility] | + + + + | 2020-09-18 00:00 | Pre-syncope | [facility] | + + + + | 2020-09-18 00:00 | Pre-syncope | [facility] | + + + + | 2020-10-06 00:00 | Combined abdominal pain, | [facility] | | | vomiting, and diarrhea | | + + + + | 2020-10-06 00:00 | Combined abdominal pain, | [facility] | | | vomiting, and diarrhea | | + + + + | 2020-10-21 00:00 | Acute back pain | [facility] | + + + + | 2020-10-21 00:00 | Acute back pain | [facility] | + + + + | 2021-04-10 00:00 | Pharyngitis | [facility] | + + + + | 2021-04-10 00:00 | Pharyngitis | [facility] | + + + + | 2021-09-18 00:00 | Pelvic pain in | [facility] | | | patient at less than 20 | | | | weeks gestation | | + + + + | 2021-09-18 00:00 | Pelvic pain in | [facility] | | | patient at less than 20 | | | | weeks gestation | | + + + + | 2021-09-18 14:47 | Other specified diseases | [facility] | | | and conditions complicating [facility] | | | | | + + + + | 2021-09-18 14:47 | Pelvic and perineal pain | [facility] | | | [facility] | + + + + | 2021-09-18 14:47 | Allergy status to | [facility] | | | penicillin | [facility] | + + + + | 2021-09-22 23:41 | Dorsalgia, unspecified | [facility] | | | [facility] | + + + + | 2021-09-22 23:41 | Strain of muscle and | [facility] | | | tendon of back wall of | [facility] | | | thorax, initial encounter | | + + + + | 2021-09-22 23:41 | Exposure to other | [facility] | | | specified factors, initial [facility] | | | encounter | | + + + + | 2021-09-22 23:41 | Allergy status to | [facility] | | | penicillin | [facility] | + + + + | 2021-09-23 00:00 | Thoracic myofascial strain | [facility] | | | | | + + + + | 2021-09-23 00:00 | Thoracic myofascial strain | [facility] | | | | | + + + + | 2021-10-13 15:35 | Other specified diseases | [facility] | | | and conditions complicating | [facility] | | | | | + + + + | 2021-10-13 15:35 | Shortness of breath | [facility] | | | [facility] | + + + + | 2021-10-13 15:35 | Chest pain, unspecified | [facility] | | | [facility] | + + + + | 2021-10-13 15:35 | Less than 8 weeks | [facility] | | | gestation of | [facility] | + + + + | 2021-10-13 15:35 | Other longterm (current) | [facility] | | | drug therapy | [facility] | + + + + | 2021-10-13 15:35 | Allergy status to | [facility] | | | penicillin | [facility] | + + + + | 2021-10-24 00:00 | Hyperemesis gravidarum | [facility] | + + + + | 2021-10-24 00:00 | Hyperemesis gravidarum | [facility] | + + + + | 2021-10-24 08:33 | Mild hyperemesis | [facility] | | | gravidarum | [facility] | + + + + | 2021-10-24 08:33 | Nausea with vomiting, | [facility] | | | unspecified | [facility] | + + + + | 2021-10-24 08:33 | 9 weeks gestation of | [facility] | | | | [facility] | + + + + | 2021-10-24 08:33 | Other longwall foreman (current) | [facility] | | | drug therapy | [facility] | + + + + | 2021-10-24 08:33 | Allergy status to | [facility] | | | penicillin | [facility] | + + + + | 2021-12-28 00:00 | Chest pain | [facility] | + + + + | 2021-12-28 00:00 | Chest pain | [facility] | + + + + | 2022-03-01 00:00 | Hypomagnesemia | [facility] | + + + + | 2022-03-01 00:00 | Cramps of lower extremity | [facility] | | | during | | + + + + | 2022-11-05 15:45 | 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 | | + + + + | 2022-11-05 15:45 | OTHER ENTHESOPATHIES, NOT | [facility] | | | ELSEWHERE CLASSIFIED | | + + + + | 2022-11-13 10:31 | EFFUSION, LEFT KNEE | [facility] | + + + + | 2022-11-13 10:31 | UNSPECIFIED INJURY OF LEFT | [facility] | | | LOWER LEG, IN | | + + + + | 2022-11-13 10:31 | UNSPECIFIED INJURY OF LEFT | [facility] | | | LOWER LEG, INITIAL | | | | ENCOUNTER | | + + + + | 2022-11-25 13:00 | OBESITY, UNSPECIFIED | [facility] | + + + + | 2022-12-03 14:30 | OBESITY, UNSPECIFIED | [facility] | + + + + | 2022-12-17 14:28 | OBESITY, UNSPECIFIED | [facility] | + + + + | 2022-12-17 14:28 | BODY MASS INDEX (BMI) | [facility] | | | 39.0-39.9, ADULT | | + + + + | 2022-12-17 14:30 | OBESITY, UNSPECIFIED | [facility] | + + + + | 2023-01-07 11:25 | OBESITY, UNSPECIFIED | [facility] | + + + + | 2023-01-07 11:25 | BODY MASS INDEX [BMI] | [facility] | | | 30.0-30.9, ADULT | | + + + + | 2023-01-07 11:30 | OBESITY, UNSPECIFIED | [facility] | + + + + Procedures No information. Results/Labs +--------+--------+ +---------+--------+---------+ | test | date | facility | value | unit | notes | +--------+--------+ +---------+--------+---------+ + + | Result panel 1 | + + + + + + + + + | | 2021-09-18 | [facility] | SEE SCANNED | (missing) | (missing) | | (unavailable | 14:59 | [facility] | | | | + + + + + + + + + | Result panel 2 | + + + + + + + + + | | 2021-09-18 | [facility] | SEE SCANNED | (missing) | (missing) | | (unavailable | 14:59 | [facility] | | | | + + + + + + + + + | Result panel 3 | + + + + + +--------+ + + | | 2021-09-25 | [facility] | [address] | (missing) | (missing) | | (unavailable | 14:05 | [facility] | | | | + + + +--------+ + + + + | Result panel 4 | + + + + + +-------+---------+ + | | 2021-10-13 | [facility] | 1.6 | mg/dL | (missing) | | (unavailable | 17:35 | [facility] | | | | + + + +-------+---------+ + + + | Result panel 5 | + + + + + +-------+ + + | | 2021-10-13 | [facility] | 7.2 | (missing) | (missing) | | (unavailable | 17:35 [facility] | | | | + + + +-------+ + + + + | Result panel 6 | + + + + + +-------+ + + | | 2021-10-13 | [facility] | 3.6 | (missing) | (missing) | | (unavailable | 17:35 [facility] | | | | + + + +-------+ + + + + | Result panel 7 | + + + + + +-------+ + + | | 2021-10-13 | [facility] | 3.6 | (missing) | (missing) | | (unavailable | 17:35 [facility] | | | | + + + +-------+ + + + + | Result panel 8 | + + + + + +--------+ + + | | 2021-10-13 | [facility] | 1.00 | (missing) | (missing) | | (unavailable | 17:35 [facility] | | | | + + + +--------+ + + + + | Result panel 9 | + + + + + +-------+ + + | | 2021-10-13 | [facility] | 0.3 | (missing) | (missing) | | (unavailable | 17:35 [facility] | | | | + + + +-------+ + + + + | Result panel 10 | + + + + + +------+ + + | | 2021-10-13 | [facility] | 26 | (missing) | (missing) | | (unavailable | 17:35 [facility] | | | | + + + +------+ + + + + | Result panel 11 | + + + + + +------+ + + | | 2021-10-13 | [facility] | 29 | (missing) | (missing) | | (unavailable | 17:35 [facility] | | | | + + + +------+ + + + + | Result panel 12 | + + + + + +------+ + + | | 2021-10-13 | [facility] | 46 | (missing) | (missing) | | (unavailable | 17:35 [facility] | | | | + + + +------+ + + + + | Result panel 13 | + + + + + +------+ + + | | 2021-10-13 | [facility] | 50 | (missing) | (missing) | | (unavailable | 17:35 [facility] | | | | + + + +------+ + + + + | Result panel 14 | + + + + + + + + + | | 2021-10-13 | [facility] | POSITIVE | (missing) | (missing) | | (unavailable | 17:35 [facility] | | | | + + + + + + + + + | Result panel 15 | + + + + + +------+ + + | | 2021-10-13 | [facility] | 1+ | (missing) | (missing) | | (unavailable | 18:32 | [facility] | | | | + + + +------+ + + + + | Result panel 16 | + + + + + + + + + | | 2021-10-13 | [facility] | NONE SEEN | (missing) | (missing) | | (unavailable | 18:32 | [facility] | | | | + + + + + + + + + | Result panel 17 | + + + + + + + + + | | 2021-10-13 | [facility] | CLEAN CATCH | (missing) | (missing) | | (unavailable | 18:32 [facility] | | | | + + + + + + + + + | Result panel 18 | + + + + + +-------+ + + | | 2021-10-13 | [facility] | 2-3 | (missing) | (missing) | | (unavailable | 18:32 [facility] | | | | + + + +-------+ + + + + | Result panel 19 | + + + + + +-------+ + + | | 2021-10-13 | [facility] | 0-1 | (missing) | (missing) | | (unavailable | 18:32 [facility] | | | | + + + +-------+ + + + + | Result panel 20 | + + + + + + + + + | | 2021-10-13 | [facility] | | (missing) | (missing) | | (unavailable | 18:32 | [facility] TRANSITIONAL [facility] | | [facility] | | [facility] | 1+ | | | + + + + + + + + + | Result panel 21 | + + + + + + + + + | | 2021-10-13 | [facility] | NONE SEEN | (missing) | (missing) | | (unavailable | 18:32 [facility] | | | | + + + + + + + + + | Result panel 22 | + + + + + + + + + | | 2021-10-24 | [facility] | YELLOW | (missing) | (missing) | | (unavailable | 08:45 | [facility] | | | | + + + + + + + + + | Result panel 23 | + + + + + +---------+ + + | | 2021-10-24 | [facility] | CLEAR | (missing) | (missing) | | (unavailable | 08:45 | [facility] | | | | + + + +---------+ + + + + | Result panel 24 | + + + + + + + + + | | 2021-10-24 | [facility] | NEGATIVE | (missing) | (missing) | | (unavailable | 08:45 | [facility] | | | | + + + + + + + + + | Result panel 25 | + + + + + + + + + | | 2021-10-24 | [facility] | POSITIVE | (missing) | (missing) | | (unavailable | 08:45 [facility] | | | | + + + + + + + + + | Result panel 26 | + + + + + +--------+ + + | | 2021-10-24 | [facility] | >=80 | (missing) | (missing) | | (unavailable | 08:45 [facility] | | | | + + + +--------+ + + + + | Result panel 27 | + + + + + + + + + | | 2021-10-24 | [facility] | >=1.030 | (missing) | (missing) | | (unavailable | 08:45 [facility] | | | | + + + + + + + + + | Result panel 28 | + + + + + + + + + | | 2021-10-24 | [facility] | TRACE-L | (missing) | (missing) | | (unavailable | 08:45 [facility] | | | | + + + + + + + + + | Result panel 29 | + + + + + +-------+ + + | | 2021-10-24 | [facility] | 6.0 | (missing) | (missing) | | (unavailable | 08:45 [facility] | | | | + + + +-------+ + + + + | Result panel 30 | + + + + + + + + + | | 2021-10-24 | [facility] | NEGATIVE | (missing) | (missing) | | (unavailable | 08:45 [facility] | | | | + + + + + + + + + | Result panel 31 | + + + + + +-------+ + + | | 2021-10-24 | [facility] | 1.0 | (missing) | (missing) | | (unavailable | 08:45 [facility] | | | | + + + +-------+ + + + + | Result panel 32 | + + + + + + + + + | | 2021-10-24 | [facility] | NEGATIVE | (missing) | (missing) | | (unavailable | 08:45 [facility] | | | | + + + + + + + + + | Result panel 33 | + + + + + + + + + | | 2021-10-24 | [facility] | NEGATIVE | (missing) | (missing) | | (unavailable | 08:45 [facility] | | | | + + + + + + + + + | Result panel 34 | + + + + + +-------+ + + | | 2021-12-28 | [facility] | 9.9 | (missing) | (missing) | | (unavailable | 14:49 [facility] | | | | + + + +-------+ + + + + | Result panel 35 | + + + + + +--------+ + + | | 2021-12-28 | [facility] | 3.29 | (missing) | (missing) | | (unavailable | 14:49 [facility] | | | | + + + +--------+ + + + + | Result panel 36 | + + + + + +--------+ + + | | 2021-12-28 | [facility] | 10.9 | (missing) | (missing) | | (unavailable | 14:49 [facility] | | | | + + + +--------+ + + + + | Result panel 37 | + + + + + +--------+ + + | | 2021-12-28 | [facility] | 31.3 | (missing) | (missing) | | (unavailable | 14:49 [facility] | | | | + + + +--------+ + + + + | Result panel 38 | + + + + + +--------+ + + | | 2021-12-28 | [facility] | 94.9 | (missing) | (missing) | | (unavailable | 14:49 [facility] | | | | + + + +--------+ + + + + | Result panel 39 | + + + + + +--------+ + + | | 2021-12-28 | [facility] | 33.1 | (missing) | (missing) | | (unavailable | 14:49 [facility] | | | | + + + +--------+ + + + + | Result panel 40 | + + + + + +--------+ + + | | 2021-12-28 | [facility] | 34.8 | (missing) | (missing) | | (unavailable | 14:49 [facility] | | | | + + + +--------+ + + + + | Result panel 41 | + + + + + +--------+ + + | | 2021-12-28 | [facility] | 13.6 | (missing) | (missing) | | (unavailable | 14:49 [facility] | | | | + + + +--------+ + + + + | Result panel 42 | + + + + + +-------+ + + | | 2021-12-28 | [facility] | 268 | (missing) | (missing) | | (unavailable | 14:49 [facility] | | | | + + + +-------+ + + + + | Result panel 43 | + + + + + +--------+ + + | | 2021-12-28 | [facility] | 67.9 | (missing) | (missing) | | (unavailable | 14:49 [facility] | | | | + + + +--------+ + + + + | Result panel 44 | + + + + + +--------+ + + | | 2021-12-28 | [facility] | 22.5 | (missing) | (missing) | | (unavailable | 14:49 [facility] | | | | + + + +--------+ + + + + | Result panel 45 | + + + + + +-------+ + + | | 2021-12-28 | [facility] | 8.3 | (missing) | (missing) | | (unavailable | 14:49 [facility] | | | | + + + +-------+ + + + + | Result panel 46 | + + + + + +-------+ + + | | 2021-12-28 | [facility] | 1.0 | (missing) | (missing) | | (unavailable | 14:49 [facility] | | | | + + + +-------+ + + + + | Result panel 47 | + + + + + +-------+ + + | | 2021-12-28 | [facility] | 0.3 | (missing) | (missing) | | (unavailable | 14:49 [facility] | | | | + + + +-------+ + + + + | Result panel 48 | + + + + + +--------+ + + | | 2021-12-28 | [facility] | 0.50 | (missing) | (missing) | | (unavailable | 14:49 [facility] | | | | + + + +--------+ + + + + | Result panel 49 | + + + + + +------+---------+ + | | 2021-12-28 | [facility] | 88 | mg/dL | (missing) | | (unavailable | 14:49 [facility] | | | | + + + +------+---------+ + + + | Result panel 50 | + + + + + +-----+---------+ + | | 2021-12-28 | [facility] | 7 | mg/dL | (missing) | | (unavailable | 14:49 [facility] | | | | + + + +-----+---------+ + + + | Result panel 51 | + + + + + +--------+---------+ + | | 2021-12-28 | [facility] | 0.52 | mg/dL | (missing) | | (unavailable | 14:49 [facility] | | | | + + + +--------+---------+ + + + | Result panel 52 | + + + + + +-------+ + + | | 2021-12-28 | [facility] | 135 | (missing) | (missing) | | (unavailable | 14:49 [facility] | | | | + + + +-------+ + + + + | Result panel 53 | + + + + + +---------+ + + | | 2021-12-28 | [facility] | 13.46 | (missing) | (missing) | | (unavailable | 14:49 [facility] | | | | + + + +---------+ + + + + | Result panel 54 | + + + + + +-------+ + + | | 2021-12-28 | [facility] | 137 | (missing) | (missing) | | (unavailable | 14:49 [facility] | | | | + + + +-------+ + + + + | Result panel 55 | + + + + + +-------+ + + | | 2021-12-28 | [facility] | 3.5 | (missing) | (missing) | | (unavailable | 14:49 [facility] | | | | + + + +-------+ + + + + | Result panel 56 | + + + + + +-------+ + + | | 2021-12-28 | [facility] | 102 | (missing) | (missing) | | (unavailable | 14:49 [facility] | | | | + + + +-------+ + + + + | Result panel 57 | + + + + + +------+ + + | | 2021-12-28 | [facility] | 24 | (missing) | (missing) | | (unavailable | 14:49 [facility] | | | | + + + +------+ + + + + | Result panel 58 | + + + + + +--------+ + + | | 2021-12-28 | [facility] | 14.5 | (missing) | (missing) | | (unavailable | 14:49 [facility] | | | | + + + +--------+ + + + + | Result panel 59 | + + + + + +-------+---------+ + | | 2021-12-28 | [facility] | 8.9 | mg/dL | (missing) | | (unavailable | 14:49 [facility] | | | | + + + +-------+---------+ + + + | Result panel 60 | + + + + + +-------+ + + | | 2021-12-28 | [facility] | 4.4 | (missing) | (missing) | | (unavailable | 14:49 [facility] | | | | + + + +-------+ + + + + | Result panel 61 | + + + + + + + + + | | 2022-02-14 | [facility] | NEGATIVE | (missing) | (missing) | | (unavailable | 19:30 [facility] | | | | + + + + + + + + + | Result panel 62 | + + + + + + + + + | | 2022-02-14 | [facility] | NEGATIVE | (missing) | (missing) | | (unavailable | 19:30 [facility] | | | | + + + + + + + + + | Result panel 63 | + + + + + + + + + | | 2022-02-14 | [facility] | NEGATIVE | (missing) | (missing) | | (unavailable | 19:30 [facility] | | | | + + + + + + + + + | Result panel 64 | + + + + + + + + + | | 2022-02-14 | [facility] | NEGATIVE | (missing) | (missing) | | (unavailable | 19:30 [facility] | | | | + + + + + + + + + | Result panel 65 | + + + + + + + + + | | 2022-02-14 | [facility] | NEGATIVE | (missing) | (missing) | | (unavailable | 19:30 [facility] | | | | + + + + + + + + + | Result panel 66 | + + + + + + + + + | | 2022-02-14 | [facility] | NEGATIVE | (missing) | (missing) | | (unavailable | 19:30 [facility] | | | | + + + + + + + + + | Result panel 67 | + + + + + + + + + | | 2022-02-14 | [facility] | NEGATIVE | (missing) | (missing) | | (unavailable | 19:30 [facility] | | | | + + + + + + + + + | Result panel 68 | + + + + + + + + + | | 2022-02-14 | [facility] | NEGATIVE | (missing) | (missing) | | (unavailable | 19:30 [facility] | | | | + + + + + + + + + | Result panel 69 | + + + + + +-------+ + + | | 2022-03-01 | [facility] | 9.7 | (missing) | (missing) | | (unavailable | 10:05 [facility] | | | | + + + +-------+ + + + + | Result panel 70 | + + + + + +--------+ + + | | 2022-03-01 | [facility] | 3.61 | (missing) | (missing) | | (unavailable | 10:05 [facility] | | | | + + + +--------+ + + + + | Result panel 71 | + + + + + +--------+ + + | | 2022-03-01 | [facility] | 11.7 | (missing) | (missing) | | (unavailable | 10:05 | [facility] | | | | + + + +--------+ + + + + | Result panel 72 | + + + + + +--------+ + + | | 2022-03-01 | [facility] | 33.8 | (missing) | (missing) | | (unavailable | 10:05 | [facility] | | | | + + + +--------+ + + + + | Result panel 73 | + + + + + +--------+ + + | | 2022-03-01 | [facility] | 93.6 | (missing) | (missing) | | (unavailable | 10:05 | [facility] | | | | + + + +--------+ + + + + | Result panel 74 | + + + + + +--------+ + + | | 2022-03-01 | [facility] | 32.4 | (missing) | (missing) | | (unavailable | 10:05 | [facility] | | | | + + + +--------+ + + + + | Result panel 75 | + + + + + +--------+ + + | | 2022-03-01 | [facility] | 34.6 | (missing) | (missing) | | (unavailable | 10:05 | [facility] | | | | + + + +--------+ + + + + | Result panel 76 | + + + + + +--------+ + + | | 2022-03-01 | [facility] | 13.1 | (missing) | (missing) | | (unavailable | 10:05 | [facility] | | | | + + + +--------+ + + + + | Result panel 77 | + + + + + +-------+ + + | | 2022-03-01 | [facility] | 295 | (missing) | (missing) | | (unavailable | 10:05 | [facility] | | | | + + + +-------+ + + + + | Result panel 78 | + + + + + +--------+ + + | | 2022-03-01 | [facility] | 77.3 | (missing) | (missing) | | (unavailable | 10:05 | [facility] | | | | + + + +--------+ + + + + | Result panel 79 | + + + + + +--------+ + + | | 2022-03-01 | [facility] | 15.2 | (missing) | (missing) | | (unavailable | 10:05 | [facility] | | | | + + + +--------+ + + + + | Result panel 80 | + + + + + +-------+ + + | | 2022-03-01 | [facility] | 6.6 | (missing) | (missing) | | (unavailable | 10:05 | [facility] | [facility] | | [facility] | | | | + + + +-------+ + + + + | Result panel 81 | + + + + + +-------+ + + | | 2022-03-01 | [facility] | 0.4 | (missing) | (missing) | | (unavailable | 10:05 | [facility] | | | | + + + +-------+ + + + + | Result panel 82 | + + + + + +-------+ + + | | 2022-03-01 | [facility] | 0.5 | (missing) | (missing) | | (unavailable | 10:05 [facility] | | | | + + + +-------+ + + + + | Result panel 83 | + + + + + +------+---------+ + | | 2022-03-01 | [facility] | 90 | mg/dL | (missing) | | (unavailable | 10:05 [facility] | | | | + + + +------+---------+ + + + | Result panel 84 | + + + + + +-----+---------+ + | | 2022-03-01 | [facility] | 6 | mg/dL | (missing) | | (unavailable | 10:05 [facility] | | | | + + + +-----+---------+ + + + | Result panel 85 | + + + + + +--------+---------+ + | | 2022-03-01 | [facility] | 0.51 | mg/dL | (missing) | | (unavailable | 10:05 [facility] | | | | + + + +--------+---------+ + + + | Result panel 86 | + + + + + +-------+ + + | | 2022-03-01 | [facility] | 134 | (missing) | (missing) | | (unavailable | 10:05 [facility] | | | | + + + +-------+ + + + + | Result panel 87 | + + + + + +---------+ + + | | 2022-03-01 | [facility] | 11.76 | (missing) | (missing) | | (unavailable | 10:05 [facility] | | | | + + + +---------+ + + + + | Result panel 88 | + + + + + +-------+ + + | | 2022-03-01 | [facility] | 138 | (missing) | (missing) | | (unavailable | 10:05 [facility] | | | | + + + +-------+ + + + + | Result panel 89 | + + + + + +-------+ + + | | 2022-03-01 | [facility] | 4.1 | (missing) | (missing) | | (unavailable | 10:05 [facility] | | | | + + + +-------+ + + + + | Result panel 90 | + + + + + +-------+ + + | | 2022-03-01 | [facility] | 102 | (missing) | (missing) | | (unavailable | 10:05 [facility] | | | | + + + +-------+ + + + + | Result panel 91 | + + + + + +------+ + + | | 2022-03-01 | [facility] | 25 | (missing) | (missing) | | (unavailable | 10:05 [facility] | | | | + + + +------+ + + + + | Result panel 92 | + + + + + +--------+ + + | | 2022-03-01 | [facility] | 15.1 | (missing) | (missing) | | (unavailable | 10:05 [facility] | | | | + + + +--------+ + + + + | Result panel 93 | + + + + + +-------+---------+ + | | 2022-03-01 | [facility] | 8.7 | mg/dL | (missing) | | (unavailable | 10:05 [facility] | | | | + + + +-------+---------+ + + + | Result panel 94 | + + + + + +-------+---------+ + | | 2022-03-01 | [facility] | 1.6 | mg/dL | (missing) | | (unavailable | 10:05 [facility] | | | | + + + +-------+---------+ + + + | Result panel 95 | + + + + + +-------+ + + | | 2022-03-01 | [facility] | 7.4 | (missing) | (missing) | | (unavailable | 10:05 [facility] | | | | + + + +-------+ + + + + | Result panel 96 | + + + + + +-------+ + + | | 2022-03-01 | [facility] | 2.9 | (missing) | (missing) | | (unavailable | 10:05 [facility] | | | | + + + +-------+ + + + + | Result panel 97 | + + + + + +-------+ + + | | 2022-03-01 | [facility] | 4.5 | (missing) | (missing) | | (unavailable | 10:05 [facility] | | | | + + + +-------+ + + + + | Result panel 98 | + + + + + +--------+ + + | | 2022-03-01 | [facility] | 0.64 | (missing) | (missing) | | (unavailable | 10:05 [facility] | | | | + + + +--------+ + + + + | Result panel 99 | + + + + + +-------+ + + | | 2022-03-01 | [facility] | 0.3 | (missing) | (missing) | | (unavailable | 10:05 [facility] | | | | + + + +-------+ + + + + | Result panel 100 | + + + + + +------+ + + | | 2022-03-01 | [facility] | 26 | (missing) | (missing) | | (unavailable | 10:05 [facility] | | | + + + +------+ + + + + | Result panel 101 | + + + + + +------+ + + | | 2022-03-01 | [facility] | 32 | (missing) | (missing) | | (unavailable | 10:05 [facility] | | | | + + + +------+ + + + + | Result panel 102 | + + + + + +------+ + + | | 2022-03-01 | [facility] | 78 | (missing) | (missing) | | (unavailable | 10:05 [facility] | | | | + + + +------+ + + Social History No information. Vital Signs + + + +---------+ | date | measurement | value | units | + + + +---------+ | 2021-09-18 00:00 | BMI | 30.3 | kg/m2 | + + + +---------+ | 2021-09-18 00:00 | BP_diastolic | 74 | mmHg | + + + +---------+ | 2021-09-18 00:00 | BP_systolic | 123 | mmHg | + + + +---------+ | 2021-09-18 00:00 | heart_rate | 78 | /min | + + + +---------+ | 2021-09-18 00:00 | height_metric | 152.4 | cm | + + + +---------+ | 2021-09-18 00:00 | height_standard | 60 | in | + + + +---------+ | 2021-09-18 00:00 | o2_saturation | 100 | % | + + + +---------+ | 2021-09-18 00:00 | respiration_rate | 16 | /min | + + + +---------+ | 2021-09-18 00:00 | temperature_metric | 36.89 | C | | | | | | + + + +---------+ | 2021-09-18 00:00 | | 98.4 | F | | | temperature_standar | | | | | d | | | + + + +---------+ | 2021-09-18 00:00 | weight_metric | 70.31 | kg | + + + +---------+ | 2021-09-18 00:00 | weight_standard | 155 | lb | + + + +---------+ | 2021-09-23 00:00 | BMI | 34.0 | kg/m2 | + + + +---------+ | 2021-09-23 00:00 | BP_diastolic | 71 | mmHg | + + + +---------+ | 2021-09-23 00:00 | BP_systolic | 129 | mmHg | + + + +---------+ | 2021-09-23 00:00 | heart_rate | 96 | /min | + + + +---------+ | 2021-09-23 00:00 | height_metric | 152.4 | cm | + + + +---------+ | 2021-09-23 00:00 | height_standard | 60 | in | + + + +---------+ | 2021-09-23 00:00 | o2_saturation | 100 | % | + + + +---------+ | 2021-09-23 00:00 | respiration_rate | 17 | /min | + + + +---------+ | 2021-09-23 00:00 | temperature_metric | 36.89 | C | | | | | | + + + +---------+ | 2021-09-23 00:00 | | 98.4 | F | | | temperature_standar | | | | | d | | | + + + +---------+ | 2021-09-23 00:00 | weight_metric | 79 | kg | + + + +---------+ | 2021-09-23 00:00 | weight_standard | 174.16 | lb | + + + +---------+ | 2021-09-23 00:00 | weight_standard | 174.17 | lb | + + + +---------+ | 2021-10-13 00:00 | BMI | 34.0 | kg/m2 | + + + +---------+ | 2021-10-13 00:00 | BP_diastolic | 76 | mmHg | + + + +---------+ | 2021-10-13 00:00 | BP_systolic | 125 | mmHg | + + + +---------+ | 2021-10-13 00:00 | heart_rate | 76 | /min | + + + +---------+ | 2021-10-13 00:00 | height_metric | 152.4 | cm | + + + +---------+ | 2021-10-13 00:00 | height_standard | 60 | in | + + + +---------+ | 2021-10-13 00:00 | o2_saturation | 100 | % | + + + +---------+ | 2021-10-13 00:00 | respiration_rate | 15 | /min | + + + +---------+ | 2021-10-13 00:00 | temperature_metric | 37.17 | C | | | | | | + + + +---------+ | 2021-10-13 00:00 | | 98.9 | F | | | temperature_standar | | | | | d | | | + + + +---------+ | 2021-10-13 00:00 | weight_metric | 78.92 | kg | + + + +---------+ | 2021-10-13 00:00 | weight_metric | 78.93 | kg | + + + +---------+ | 2021-10-13 00:00 | weight_standard | 174 | lb | + + + +---------+ | 2021-10-24 00:00 | BMI | 33.0 | kg/m2 | + + + +---------+ | 2021-10-24 00:00 | BP_diastolic | 70 | mmHg | + + + +---------+ | 2021-10-24 00:00 | BP_systolic | 107 | mmHg | + + + +---------+ | 2021-10-24 00:00 | heart_rate | 61 | /min | + + + +---------+ | 2021-10-24 00:00 | height_metric | 152.4 | cm | + + + +---------+ | 2021-10-24 00:00 | height_standard | 60 | in | + + + +---------+ | 2021-10-24 00:00 | o2_saturation | 100 | % | + + + +---------+ | 2021-10-24 00:00 | respiration_rate | 16 | /min | + + + +---------+ | 2021-10-24 00:00 | temperature_metric | 36.72 | C | | | | | | + + + +---------+ | 2021-10-24 00:00 | | 98.1 | F | | | temperature_standar | | | | | d | | | + + + +---------+ | 2021-10-24 00:00 | weight_metric | 76.71 | kg | + + + +---------+ | 2021-10-24 00:00 | weight_metric | 76.72 | kg | + + + +---------+ | 2021-10-24 00:00 | weight_standard | 169.13 | lb | + + + +---------+ | 2021-12-28 00:00 | BMI | 34.2 | kg/m2 | + + + +---------+ | 2021-12-28 00:00 | BP_diastolic | 77 | mmHg | + + + +---------+ | 2021-12-28 00:00 | BP_systolic | 117 | mmHg | + + + +---------+ | 2021-12-28 00:00 | heart_rate | 86 | /min | + + + +---------+ | 2021-12-28 00:00 | height_metric | 152.4 | cm | + + + +---------+ | 2021-12-28 00:00 | height_standard | 60 | in | + + + +---------+ | 2021-12-28 00:00 | o2_saturation | 100 | % | + + + +---------+ | 2021-12-28 00:00 | respiration_rate | 16 | /min | + + + +---------+ | 2021-12-28 00:00 | temperature_metric | 36.72 | C | | | | | | + + + +---------+ | 2021-12-28 00:00 | | 98.1 | F | | | temperature_standar | | | | | d | | | + + + +---------+ | 2021-12-28 00:00 | weight_metric | 79.44 | kg | + + + +---------+ | 2021-12-28 00:00 | weight_standard | 175.13 | lb | + + + +---------+ | 2021-12-28 00:00 | weight_standard | 175.14 | lb | + + + +---------+ | 2022-03-01 00:00 | BMI | 37.3 | kg/m2 | + + + +---------+ | 2022-03-01 00:00 | BP_diastolic | 81 | mmHg | + + + +---------+ | 2022-03-01 00:00 | BP_systolic | 123 | mmHg | + + + +---------+ | 2022-03-01 00:00 | heart_rate | 91 | /min | + + + +---------+ | 2022-03-01 00:00 | height_metric | 152.4 | cm | + + + +---------+ | 2022-03-01 00:00 | height_standard | 60 | in | + + + +---------+ | 2022-03-01 00:00 | o2_saturation | 99 | % | + + + +---------+ | 2022-03-01 00:00 | respiration_rate | 16 | /min | + + + +---------+ | 2022-03-01 00:00 | temperature_metric | 36.72 | C | | | | | | + + + +---------+ | 2022-03-01 00:00 | | 98.1 | F | | | temperature_standar | | | | | d | | | + + + +---------+ | 2022-03-01 00:00 | weight_metric | 86.69 | kg | + + + +---------+ | 2022-03-01 00:00 | weight_metric | 86.7 | kg | + + + +---------+ | 2022-03-01 00:00 | weight_standard | 191.12 | lb | + + + +---------+ | 2022-03-01 00:00 | weight_standard | 191.13 | lb | + + + +---------+"
--- OUTSIDE RECORDS SUMMARY | ~2023-01-29 | XMS | Continuity of Care Document ---
Demographics + + + | Address | [address] | | | [place] [address] | + + + | Preferred Language | Unknown | + + + | Marital Status | Polygamous | + + + | Rastafarian Affiliation | Unknown | + + + | Race | White | + + + | Ethnic Group | Not or | + + + Author + + + | Author | [facility] | + + + | Organization | [facility] | + + + | Address | [address] | | | [place] [address] | + + + | Phone | | + + + Care Team Providers + + + + | Care Lens Generator Name | Role | Phone | + [...] | 2021-09-23 00:00 | Lidocaine | [facility] | + + + + | 2021-09-23 00:00 | Lidocaine | [facility] | + + + + | 2020-10-06 00:00 | ONDANSETRON | [facility] | + + + + | 2020-10-06 00:00 | ONDANSETRON | [facility] | + + + + | 2022-01-02 00:00 | METHYLPHENIDATE HCL | [facility] | + + + + | 2022-02-15 00:00 | METHYLPHENIDATE HCL | [facility] | + + + + | 2016-06-19 00:00 | LIDOCAINE HCL | [facility] | + + + + | 2016-06-19 00:00 | LIDOCAINE HCL | [facility] | + + + + | 2016-06-19 00:00 | IBUPROFEN | [facility] | + + + + | 2016-06-19 00:00 | IBUPROFEN | [facility] | + + + + | 2021-10-24 00:00 | ONDANSETRON | [facility] | + + + + | 2021-10-24 00:00 | ONDANSETRON | [facility] | + + + + | 2022-01-02 00:00 | SERTRALINE HCL | [facility] | + + + + | 2022-02-15 00:00 | SERTRALINE HCL | [facility] | + + + + | 2022-01-02 00:00 | Cholecalciferol (Vitamin | [facility] | | | D3) | | + + + + | 2022-02-15 00:00 | Cholecalciferol (Vitamin | [facility] | | | D3) | | + + + + | 2020-10-21 00:00 | CYCLOBENZAPRINE HCL | [facility] | + + + + | 2020-10-21 00:00 | CYCLOBENZAPRINE HCL | [facility] | + + + + | 2021-09-23 00:00 | CYCLOBENZAPRINE HCL | [facility] | + + + + | 2021-09-23 00:00 | CYCLOBENZAPRINE HCL | [facility] | + + + + | 2013-10-23 00:00 | | [facility] | | | SULFAMETHOXAZOLE/TRIMETHOPR | | | | IM DS | | + + + + | 2013-10-23 00:00 | | [facility] | | | SULFAMETHOXAZOLE/TRIMETHOPR | | | | IM DS | | + + + + | 2022-01-02 00:00 | CLONIDINE HCL | [facility] | + + + + | 2022-02-15 00:00 | CLONIDINE HCL | [facility] | + + + + Problems + + + + | date | description | facility | + + + + | 2016-06-19 00:00 | Strain of thoracic region | [facility] | + + + + | 2016-06-19 00:00 | Strain of thoracic region | [facility] | + + + + | 2016-06-19 00:00 | Strain of lumbar region | [facility] | + + + + | 2016-06-19 00:00 | Strain of lumbar region | [facility] | + + + + | 2020-09-18 00:00 | Pre-syncope | [facility] | + + + + | 2020-09-18 00:00 | Pre-syncope | [facility] | + + + + | 2020-10-06 00:00 | Combined abdominal pain, | [facility] | | | vomiting, and diarrhea | | + + + + | 2020-10-06 00:00 | Combined abdominal pain, | [facility] | | | vomiting, and diarrhea | | + + + + | 2020-10-21 00:00 | Acute back pain | [facility] | + + + + | 2020-10-21 00:00 | Acute back pain | [facility] | + + + + | 2021-04-10 00:00 | Pharyngitis | [facility] | + + + + | 2021-04-10 00:00 | Pharyngitis | [facility] | + + + + | 2021-09-18 00:00 | Pelvic pain in | [facility] | | | patient at less than 20 | | | | weeks gestation | | + + + + | 2021-09-18 00:00 | Pelvic pain in | [facility] | | | patient at [...] 2021-09-23 00:00 | Thoracic myofascial strain | [facility] | | | | | + + + + | 2021-09-23 00:00 | Thoracic myofascial strain | [facility] | | | | | [...] + + | 2021-10-13 15:35 | Other chcf (current) | [facility] | | | drug therapy | [facility] | + + + + | 2021-10-13 15:35 | Allergy status to | [facility] | | | penicillin | [facility] | + + + + | 2021-10-24 00:00 | Hyperemesis gravidarum | [facility] | + + + + | 2021-10-24 00:00 | Hyperemesis gravidarum | [facility] | + + + + [...] + + | 2021-10-24 08:33 | 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
--- OUTSIDE RECORDS SUMMARY | 2023-01-29 10:07 | XMS ---
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 No recent Security Events currently on file [place]ITERIA MET - [facility] LEXIE RIOS Nurse Practitioner: 09/25/2021-Current PHONE: [phone] AMAURI PRICE [facility]: Primary Care 01/16/2019-[facility] PHONE: [phone] -[place]- Dentist: Manager Of Corporate [facility] PHONE: [phone] HUONG LEUNG Casing Splitter/Lumber Marker Current [facility] TEAM PHONE: Unknown Care Guidelines exist for the following facilities: [facility] ( 07/08/2020 ) Care History Medical/Surgical 09/24/2021 [facility] - Patient is currently established with [facility]. If patient is seen in the ED during business hours. Please contact CHWs at [facility]. Care Recommendation: If this patient has [...] providing care. E.D. VISIT COUNT ([address] [facility]. TOTAL 2 NOTE: Visits indicate total known visits. ED/UCC VISIT TRACKING (12 MO.) 01/29/2023 10:04 [facility] TYPE: Emergency COMPLAINT: - R KNEE, SHOULDERS PAIN 03/01/2022 08:53 [facility] TYPE: Emergency COMPLAINT: - CRAMP IN LEGS DIAGNOSES: - 28 weeks gestation of - Allergy status to penicillin - Cramp and spasm - Endocrine, nutritional and metabolic diseases complicating , third trimester - Hypomagnesemia - Other specified diseases and conditions complicating - Pain in right leg INPATIENT VISIT TRACKING (12 MO.) 05/26/2022 00:11 [facility] TYPE: [facility] COMPLAINT: - INDUCTION DIAGNOSES: - 39 weeks gestation of - 39 weeks gestation of - Abnormality in heart rate and rhythm complicating labor and delivery - Anxiety disorder, unspecified - Anxiety disorder, unspecified - Cannabis use, unspecified, uncomplicated - Cannabis use, unspecified, uncomplicated - Drug use complicating childbirth - Drug use complicating childbirth - Obesity complicating childbirth - Obesity complicating childbirth - Other mental disorders complicating childbirth - Other mental disorders complicating childbirth - Single live - Single live - Vitamin D deficiency, unspecified - Vitamin D deficiency, unspecified 02/14/2022 18:13 [facility] TYPE: Observation COMPLAINT: - OB CHECK - OBSERVATION DIAGNOSES: - 25 weeks gestation of - Contact with and (suspected) exposure to COVID-19 - Fall on same level from slipping, tripping and stumbling without subsequent striking against object, initial encounter - False labor before 37 completed weeks of gestation, second trimester - Injury, poisoning and certain other consequences of external causes complicating , second trimester [email or web address]
[2023-01-29] MEDS ORDERED: BUSPIRONE HCL5 MG PO (10:59)
[2023-01-29] MEDS ORDERED: CONCERTA36 MG PO (10:59)
[2023-01-29] MEDS ORDERED: PREDNISONE20 MG PO (11:58)
[2023-01-29 12:26] VITALS: BP 111/70
[2023-01-29 12:26] LABS: ALBUMIN 3.4 g/dL (3.4-5.0); ALBUMIN/GLOBULIN RATIO 0.92 (1.1-2.4); ANION GAP 14.1 (7-21); BILIRUBIN, TOTAL 0.3 ng/dL (0.2-1.0); BUN/CREATININE RATIO 10.14 (6.0-28.6); CALCIUM 8.7 mg/dL (8.5-10.1); CREATININE, SERUM 0.69 mg/dL (0.55-1.02); POTASSIUM 3.1 mmol/L (3.5-5.1); PROTEIN, TOTAL 7.1 g/dL (6.4-8.2)
[2023-01-29 13:24] LABS: BASOPHILS 0.3 % (0-2); EOSINOPHILS 1.4 % (0-6); HEMATOCRIT 34.8 % (35.0-50.0); HEMOGLOBIN 11.5 g/dL (12.0-18.0); LYMPHOCYTES 22.2 % (24-44); MCH 26.8 (27-36); MCV 81.2 fl (81-99); MONOCYTES 4.3 % (0-12); NEUTROPHILS 71.8 % (39-80); PLATELET COUNT 279 K/uL (140-440); RBC 4.28 M/ul (4.3-5.7); RDW 15.8 (10.5-15.0)
[2023-01-29 13:29] LABS: ERYTHROCYTE SEDIMENTATION RATE 29
[2023-01-30 14:12] LABS: RHEUMATOID FACTOR <10 IU/mL (0-14)
[2023-01-31 00:39] LABS: ANTI-NUCLEAR AB ANA,IGG ELISA Detected (None Detected)
[2023-02-01 15:47] LABS: ANTINUCLEAR AB (ANA),HEP-2,IGG <1:80 (<1:80)
== END 2023-01-29 12:45 | disposition home or self-care (01) ==
LOC: ED 10:03
PROVIDERS: Emergency Medicine
DX: M19.90 Unspecified osteoarthritis, unspecified site (principal); M25.512 Pain in left shoulder; M25.561 Pain in right knee; M25.511 Pain in right shoulder; F17.200 Nicotine dependence, unspecified, uncomplicated; Z88.0 Allergy status to penicillin; Z79.899 Other long term (current) drug therapy
CPT/HCPCS: 36415; 80053; 85025; 85651; 86038; 86140; 86431; 99283; J7512

== ENCOUNTER 2023-03-31 17:31 | Emergency (ER) | payer BC, OTHER | END 2023-03-31 21:20 | disposition home or self-care (01) | LOC: ED 17:31 | DX: B34.9 Viral infection, unspecified (principal); F17.200 Nicotine dependence, unspecified, uncomplicated; Z88.0 Allergy status to penicillin; Z79.899 Other long term (current) drug therapy ==

== ENCOUNTER 2024-03-31 17:07 | Emergency (ER) | payer BC, OTHER ==
[~2024-03-31] VITALS: Ht 152.4 cm; Wt 88.2 kg
[~2024-03-31 17:07] MED LIST changes: +BUSPIRONE HCL5 MG PO; +CONCERTA36 MG PO; +PREDNISONE20 MG PO
[2024-03-31] MEDS ORDERED: BUSPIRONE HCL15 MG PO (17:36)
[2024-03-31] MEDS ORDERED: LIDOCAINE & ANTACID 35 ML BTL PO ONE (17:45)
[2024-03-31] MEDS ORDERED: ondansetron HCL 4 MG/2 ML VIAL IV ONE (17:45)
[2024-03-31] MEDS ORDERED: SODIUM CHLORIDE 0.9% 1,000 ML IV ONE (17:45)
[2024-03-31 17:53] LABS: BILIRUBIN, URINE POSITIVE (negative); BLOOD/HGB, URINE SMALL (Negative); KETONE, URINE >=80 (Negative); LEUK ESTERASE, URINE NEGATIVE (negative); NITRITE, URINE NEGATIVE (negative)
[2024-03-31 17:59] LABS: EPITHELIAL CELLS, URINE SQUAMOUS 3+ /lpf (0-1+)
[2024-03-31 18:01] LABS: BACTERIA, URINE 2+ /hpf (negative); CASTS, URINE NONE SEEN \\lpf; COLLECTION TYPE, URINE CLEAN CATCH; RED BLOOD CELLS, URINE 0-1 /hpf (0-5); REFLEX CULTURE, URINE No (No)
[2024-03-31 18:02] LABS: CRYSTALS, URINE CALCIUM OXALATE 2+ (0-1+)
[2024-03-31 18:09] LABS: ALBUMIN 4.1 g/dL (3.4-5.0); ALBUMIN/GLOBULIN RATIO 1.11 (1.1-2.4); BILIRUBIN, TOTAL 0.5 ng/dL (0.2-1.0); BUN/CREATININE RATIO 12.5 (6.0-28.6); CREATININE, SERUM 0.72 mg/dL (0.55-1.02); PROTEIN, TOTAL 7.8 g/dL (6.4-8.2)
[2024-03-31 18:27] LABS: BASOPHILS 0.4 % (0-2); EOSINOPHILS 0.4 % (0-6); HEMOGLOBIN 12.5 g/dL (12.0-18.0); LYMPHOCYTES 28.8 % (24-44); MCH 31.8 (27-36); MCHC 35.7 g/dl (30-36); MCV 88.9 fl (81-99); NEUTROPHILS 64.4 % (39-80); PLATELET COUNT 271 K/uL (140-440); RBC 3.93 M/ul (4.3-5.7); RDW 14.1 (10.5-15.0)
[2024-03-31] MEDS ORDERED: PEPCID20 MG PO (19:13)
[2024-03-31] MEDS ORDERED: CEPHALEXIN500 M1 PO (19:13)
[2024-03-31] MEDS ORDERED: ONDANSETRON ODT4 MG PO (19:13)
[2024-03-31] MEDS ORDERED: DICLEGIS DR 101 EACH PO (19:13)
[2024-03-31 19:30] VITALS: BP 133/94
[2024-03-31] MEDS ORDERED: CEPHALEXIN MONOHYDRATE 500 MG CAP PO ONE (19:30)
== END 2024-03-31 19:30 | disposition home or self-care (01) ==
LOC: ED 17:07
PROVIDERS: Emergency Medicine
DX: O26.891 Other specified pregnancy related conditions, first trimester (principal); R10.13 Epigastric pain; Z3A.01 Less than 8 weeks gestation of pregnancy; O99.331 Smoking (tobacco) complicating pregnancy, first trimester; F17.200 Nicotine dependence, unspecified, uncomplicated; Z88.0 Allergy status to penicillin; Z79.899 Other long term (current) drug therapy
CPT/HCPCS: 36415; 76801; 76817; 80053; 80061; 81001; 83690; 84443; 84703; 85025; 96374; 99284-25; A9270; J2405; J7030

== ENCOUNTER 2024-04-28 10:25 | Emergency (ER) | payer BC, OTHER ==
[~2024-04-28] VITALS: Ht 152.4 cm; Wt 86.0 kg
[~2024-04-28 10:25] MED LIST changes: +BUSPIRONE HCL15 MG PO; +CEPHALEXIN500 M1 PO; +DICLEGIS DR 101 EACH PO; +PEPCID20 MG PO
[2024-04-28 11:22] LABS: BASOPHILS 0.4 % (0-2); EOSINOPHILS 0.4 % (0-6); HEMATOCRIT 36.8 % (35.0-50.0); HEMOGLOBIN 12.7 g/dL (12.0-18.0); LYMPHOCYTES 18.6 % (24-44); MCH 31.5 (27-36); MCHC 34.5 g/dl (30-36); MCV 91.1 fl (81-99); MONOCYTES 5.9 % (0-12); NEUTROPHILS 74.7 % (39-80); PLATELET COUNT 275 K/uL (140-440); RBC 4.04 M/ul (4.3-5.7); RDW 14.5 (10.5-15.0)
[2024-04-28 11:37] LABS: ALBUMIN 3.4 g/dL (3.4-5.0); ALBUMIN/GLOBULIN RATIO 0.81 (1.1-2.4); ANION GAP 12.5 (7-21); BILIRUBIN, TOTAL 0.3 ng/dL (0.2-1.0); BUN/CREATININE RATIO 12.67 (6.0-28.6); CALCIUM 9.7 mg/dL (8.5-10.1); CREATININE, SERUM 0.71 mg/dL (0.55-1.02); POTASSIUM 3.5 mmol/L (3.5-5.1); PROTEIN, TOTAL 7.6 g/dL (6.4-8.2)
[2024-04-28 11:37] LABS: BILIRUBIN, URINE POSITIVE (negative); BLOOD/HGB, URINE TRACE-I (Negative); KETONE, URINE SMALL (Negative); LEUK ESTERASE, URINE NEGATIVE (negative); NITRITE, URINE NEGATIVE (negative)
[2024-04-28 11:43] LABS: BACTERIA, URINE 1+ /hpf (negative); CASTS, URINE NONE SEEN \\lpf; COLLECTION TYPE, URINE CLEAN CATCH; CRYSTALS, URINE NONE SEEN (0-1+); RED BLOOD CELLS, URINE 0-1 /hpf (0-5); REFLEX CULTURE, URINE No (No); WHITE BLOOD CELLS, URINE 0-1 /HPF (0-5)
[2024-04-28] MEDS ORDERED: ONDANSETRON 4 MG TAB ODT SL ONE (12:00)
[2024-04-28] MEDS ORDERED: ACETAMINOPHEN 325 MG TAB PO ONE (12:00)
[2024-04-28] MEDS ORDERED: PROMETHEGAN12.5 MG PR (13:30)
[2024-04-28] MEDS ORDERED: REGLAN10 MG PO (13:30)
[2024-04-28 13:40] VITALS: BP 127/74
== END 2024-04-28 13:40 | disposition home or self-care (01) ==
LOC: ED 10:25
PROVIDERS: Emergency Medicine
DX: O21.0 Mild hyperemesis gravidarum (principal); Z3A.00 Weeks of gestation of pregnancy not specified; O99.331 Smoking (tobacco) complicating pregnancy, first trimester; F17.200 Nicotine dependence, unspecified, uncomplicated; Z88.0 Allergy status to penicillin; Z79.899 Other long term (current) drug therapy
CPT/HCPCS: 36415; 80053; 81001; 85025; 99284; A9270

== ENCOUNTER 2024-05-27 17:32 | Emergency (ER) | payer BC, OTHER ==
[~2024-05-27] VITALS: Ht 152.4 cm; Wt 85.7 kg
[~2024-05-27 17:32] MED LIST changes: +PROMETHEGAN12.5 MG PR; +REGLAN10 MG PO
[2024-05-27] MEDS ORDERED: IBUPROFEN 600 MG TAB PO ONE (19:00)
[2024-05-27] MEDS ORDERED: METOCLOPRAMIDE HCL 10 MG TAB PO ONE (19:00)
[2024-05-27] MEDS ORDERED: ACETAMINOPHEN 325 MG TAB PO ONE (19:00)
[2024-05-27] MEDS ORDERED: REGLAN10 MG PO (19:33)
[2024-05-27 19:52] VITALS: BP 131/91
== END 2024-05-27 19:53 | disposition home or self-care (01) ==
LOC: ED 17:32
DX: O26.892 Other specified pregnancy related conditions, second trimester (principal); R51.9 Headache, unspecified; Z3A.14 14 weeks gestation of pregnancy; O99.332 Smoking (tobacco) complicating pregnancy, second trimester; F17.200 Nicotine dependence, unspecified, uncomplicated; Z88.0 Allergy status to penicillin
CPT/HCPCS: 99283; A9270

== ENCOUNTER 2024-11-13 16:32 | Inpatient (IN) | payer OTHER ==
[~2024-11-13] VITALS: Ht 152.4 cm; Wt 97.5 kg
[2024-11-21] MEDS ORDERED: LACTATED RINGER'S 1,000 ML IV PRN (05:00)
[2024-11-21] MEDS ORDERED: SOD+POT BICARB/CITRIC ACID 2 EA TABLET.EFF PO ONE (05:00)
[2024-11-21 05:38] LABS: AMPHETAMINES, URINE NEGATIVE (NEGATIVE); BARBITURATES, URINE NEGATIVE (NEGATIVE); BENZODIAZEPINE, URINE NEGATIVE (NEGATIVE); CANNABINOID, URINE POSITIVE (NEGATIVE); COCAINE, URINE NEGATIVE (NEGATIVE); ECSTASY, URINE NEGATIVE (NEGATIVE); FENTANYL, URINE NEGATIVE (NEGATIVE); METHADONE, URINE NEGATIVE (NEGATIVE); OPIATES, URINE NEGATIVE (NEGATIVE); OXYCODONE, URINE NEGATIVE (NEGATIVE); PHENCYCLIDINE, URINE NEGATIVE (NEGATIVE)
[2024-11-21 05:44] VITALS: BP 126/58
[2024-11-21 05:59] LABS: MCH 30.9 PG (25.6-32.2); MCHC 34.3 g/dL (32.2-35.5); MCV 90.1 fL (79.4-94.8); RBC 3.53 M/uL (3.93-5.22)
[2024-11-21 06:42] LABS: ABO A; ANTIBODY SCREEN NEGATIVE; RH POSITIVE
[2024-11-21] MEDS ORDERED: CEFAZOLIN SODIUM 2 GM/20 ML SYR IV SCH (07:00)
[2024-11-21] MEDS ORDERED: LIDOCAINE HCL 2% 5 ML SDV ONE (07:47)
[2024-11-21] MEDS ORDERED: BUPIVACAINE 0.75% IN DEXTROSE 2 ML AMP ONE (07:47)
[2024-11-21] MEDS ORDERED: OXYTOCIN 10 UNITS/ML VIAL ONE (07:47)
[2024-11-21] MEDS ORDERED: fentaNYL citrate 100 MCG/2 ML VIAL ONE (07:47)
[2024-11-21] MEDS ORDERED: MORPHINE SULFATE 1 MG/ML VIAL ONE (07:47)
[2024-11-21] MEDS ORDERED: PHENYLEPHRINE HCL 10 MG/ML VIAL ONE (08:15)
[2024-11-21] MEDS ORDERED: PROCHLORPERAZINE EDISYLATE 10 MG/2 ML VIAL IV PRN (08:45)
[2024-11-21] MEDS ORDERED: HYDROmorphone HCL 1 MG/ML SYR IV PRN (08:45)
[2024-11-21] MEDS ORDERED: NALOXONE HCL 0.4 MG SYR IV PRN (08:45)
[2024-11-21] MEDS ORDERED: KETOROLAC TROMETHAMINE 30 MG/ML VIAL IV PRN (08:45)
[2024-11-21] MEDS ORDERED: DEXAMETHASONE SOD PHOS 4 MG/ML VIAL ONE ×2 (08:48)
[2024-11-21] MEDS ORDERED: SODIUM CHLORIDE 0.9% 20 ML IV ONE (08:48)
[2024-11-21] MEDS ORDERED: Ropivacaine HCl 0.5% 30 ML VIAL ONE (08:48)
[2024-11-21] MEDS ORDERED: ACETAMINOPHEN 1,000 MG/100 ML VIAL ONE (08:53)
[2024-11-21] MEDS ORDERED: SENNOSIDES/DOCUSATE 1 EA TAB PO SCH (09:48)
[2024-11-21] MEDS ORDERED: LACTATED RINGER'S 1,000 ML IV SCH (09:52)
[2024-11-21] MEDS ORDERED: METOCLOPRAMIDE HCL 10 MG/2 ML SDV IV PRN (10:00)
[2024-11-21] MEDS ORDERED: PROMETHAZINE HCL 25 MG TAB PO PRN (10:00)
[2024-11-21] MEDS ORDERED: HYDROCODONE/ACETA 5/325 TAB PO PRN (10:00)
[2024-11-21] MEDS ORDERED: OXYCODONE/APAP 5/325 TAB PO PRN (10:00)
[2024-11-21] MEDS ORDERED: PROMETHAZINE HCL 25 MG SUPP PR PRN (10:00)
[2024-11-21] MEDS ORDERED: OXYTOCIN/0.9 % SODIUM CHLORIDE 500 ML IV SCH (10:00)
[2024-11-21 10:34] VITALS: BP 99/55
--- NOTE | 2024-11-21 10:54 | NUR ---
11/21/24 1054 Elvia Ladd 0948 PT ARRIVED IN PACU SLEEPY. C/O FEELING ITCHY ON CHEST. ANESTHESIA AT BEDSIDE AND TOLD PT HE GAVE HER BENADRYL TO HELP. 0950 PT HOLDING BABY. 1000 BREAST FEEDING BABY. NO C/O'S. 1013 REPORT GIVEN TO RN. BED PLUGGED IN.
[2024-11-21] MEDS ORDERED: SIMETHICONE 80 MG CHEW PO SCH (11:00)
[2024-11-21] MEDS ORDERED: IBUPROFEN 600 MG TAB PO SCH (14:00)
[2024-11-22] MEDS ORDERED: LACTATED RINGER'S 1,000 ML IV SCH (05:00)
--- NOTE | 2024-11-22 07:48 | OR ---
[facility] [address] [place] [id number] Signed DATE OF OPERATION: 11/21/2024 SURGEON: Anabelle Pierson MD PREOPERATIVE DIAGNOSES: 1. Intrauterine at 39 and 2/7th weeks. 2. Prior section, declines trial of labor after . PROCEDURE: Repeat low-transverse section. FINDINGS: Vigorous male infant, Apgars of 9 and 9, weight of 7 pounds 3 ounces. Normal uterus, tubes, and ovaries. Clear amniotic fluid as well. ANESTHESIA: Spinal. IV FLUIDS: 500 mL crystalloid. QBL: 676 mL. URINE OUTPUT: 50 mL of clear urine. DRAINS: Marie to gravity. SPECIMENS: None. COUNTS: Correct x2. COMPLICATIONS: None apparent. TECHNIQUE IN DETAIL: Electronically Signed By: ANABELLE PIERSON MD 11/22/24 0748 PATIENT NAME: HOANG SAUCEDO OPERATIVE REPORT DATE OF : 89 REPORT #: [id number] PHYSICIAN: ANABELLE PIERSON MD PCP: NO PRIMARY CARE PHYSICIAN REPORT IS CONFIDENTIAL AND NOT TO BE RELEASED WITHOUT AUTHORIZATION [facility] [address] [place] [id number] Signed With informed consent, the patient was taken to the operating room where regional analgesia was placed. Her lower extremities were placed in SCD pneumatic compression devices. She also received 2 g of Ancef intravenously per protocol. She was prepped and draped in sterile fashion and time-out was performed per protocol. Under adequate analgesia, an approximately 7 inch Pfannenstiel skin incision was made at the site of the old incision and sharp dissection was carried down to the layer of the rectus fascia, which was nicked in the midline. The fascial jessica was enlarged bilaterally using sharp dissection. The rectus muscles were then taken down from the overlying fascia using a combination of sharp and blunt dissection. This was done both superiorly and inferiorly. The rectus muscles were in the midline at the most superior aspect. The underlying preperitoneal fat and peritoneum were grasped with hemostats and elevated and using Metzenbaum scissors, this layer was carefully incised. Once we got to a very thin layer of the peritoneum remaining, the surgeon's finger was placed and the peritoneum was punctured quite easily. A finger sweep on the anterior abdominal wall was performed to ensure no adhesions present and none were found. The rectus muscles were first superiorly using sharp dissection and then inferiorly using sharp dissection. Careful attention was paid to the location of the urinary bladder. We opened up the peritoneal opening first with sharp dissection and then blunt dissection. A bladder blade was then placed. Using a scalpel, a low transverse uterine incision was made approximately 2 cm above the bladder reflection. Once the remaining uterine layer was thin, the surgeon's finger was used to puncture the remaining tissue and the hysterotomy site was then enlarged with blunt dissection in a superior to inferior direction. Clear amniotic fluid escaped. The surgeon's hand was then placed into the lower uterine segment. The head was elevated and delivered with fundal pressure. There was no nuchal cord. The cord was clamped x2 and cut after approximately 10 seconds and the baby was handed off to the transition team. Cord blood was taken per protocol. The placenta delivered intact with a three-vessel cord using gentle traction and fundal massage. Good uterine tone was achieved with intravenous oxytocin. The uterus was gently externalized. Then uterine cavity was curetted with laparotomy sponges. Uterine incision was then reapproximated using 0 Monocryl in a running locked fashion. A second imbricating layer of 0 Monocryl was placed in a running fashion. There were a few areas of oozing along the incision and these were rectified using 0 Monocryl [id number] stitch. Three of those were placed in total. We did have to dissect the bladder flap away from the red aspect of the hysterotomy site to ensure were bladder safety. There were some areas of oozing on the bladder edge that were hemostatic with the cautery device. Electronically Signed By: ANABELLE PIERSON MD 11/22/24 0748 PATIENT NAME: HOANG SAUCEDO OPERATIVE REPORT DATE OF : 89 REPORT #: [id number] PHYSICIAN: ANABELLE PIERSON MD PCP: NO PRIMARY CARE PHYSICIAN REPORT IS CONFIDENTIAL AND NOT TO BE RELEASED WITHOUT AUTHORIZATION [address] [address] Signed The posterior cul-de-sac was then cleaned of all blood and clot. The uterine incision was inspected again as was the bladder and good hemostasis was noted. The uterus was returned to the pelvis. The left and right pericolic gutters were cleared of all clot and blood. The uterine incision was inspected one final time as was the bladder again and good hemostasis was noted yet again. The rectus muscles and peritoneum were then reapproximated using 2-0 chromic in a running fashion. The rectus muscle bellies were inspected and rendered hemostatic with the Bovie. The rectus fascia was reapproximated using 0 Vicryl in a running fashion. Superficial incision was irrigated and rendered hemostatic with electrocautery. The subcutaneous tissue was reapproximated using 2-0 chromic in a running fashion. The skin was reapproximated with the Insorb stapler device. Steri-Strips and bandage were then placed. The uterus was then expressed of all clots. DISPOSITION: The patient and baby were taken to the recovery room in stable condition. Anabelle Pierson MD BB/MODL /[id number] Copies: ~ Electronically Signed By: ANABELLE PIERSON MD 11/22/24 0748 PATIENT NAME: HOANG SAUCEDO OPERATIVE REPORT DATE OF : 89 REPORT #: [id number] PHYSICIAN: ANABELLE PIERSON MD PCP: NO PRIMARY CARE PHYSICIAN REPORT IS CONFIDENTIAL AND NOT TO BE RELEASED WITHOUT AUTHORIZATION
[2024-11-22] MEDS ORDERED: PROCHLORPERAZINE EDISYLATE 10 MG/2 ML VIAL IV PRN (08:45)
[2024-11-22] MEDS ORDERED: ACETAMINOPHEN 325 MG TAB PO PRN (11:00)
[2024-11-22] MEDS ORDERED: OXYCODONE HCL 5 MG TAB PO PRN (14:15)
== END 2024-11-23 11:35 | disposition home or self-care (01) | DRG 787 ==
LOC: FBC 11-21 04:48
PROVIDERS: ADMIT Obstetrics & Gynecology; ATTEND Obstetrics & Gynecology
PROC: 10907ZC Drainage of Amniotic Fluid, Therapeutic from Products of Conception, Via Natural or Artificial Opening (ICD-10-PCS; 2024-11-21)
PROC: 10D00Z1 Extraction of Products of Conception, Low, Open Approach (ICD-10-PCS; principal; 2024-11-21 07:30)
DX: O34.211 Maternal care for low transverse scar from previous cesarean delivery (principal); O99.324 Drug use complicating childbirth; O99.354 Diseases of the nervous system complicating childbirth; Z3A.39 39 weeks gestation of pregnancy; Z37.0 Single live birth; O99.344 Other mental disorders complicating childbirth; F41.9 Anxiety disorder, unspecified; F90.9 Attention-deficit hyperactivity disorder, unspecified type; O99.02 Anemia complicating childbirth; K21.9 Gastro-esophageal reflux disease without esophagitis; O99.62 Diseases of the digestive system complicating childbirth; O99.214 Obesity complicating childbirth; F12.90 Cannabis use, unspecified, uncomplicated; G43.909 Migraine, unspecified, not intractable, without status migrainosus; Z79.899 Other long term (current) drug therapy; Z88.0 Allergy status to penicillin; Z88.5 Allergy status to narcotic agent
CPT/HCPCS: 01961; 36415; 76942; 80307; 85027; 86850; 86900; 86901; A9270; J0131; J0690; J1100; J1200; J2003; J2274; J2371; J2405; J2590; J2795; J3010; J7121